=== PATIENT | male | born 1970 | race Caucasian/White ===

== ENCOUNTER 2018-12-08 14:27 | Emergency (ER) | payer OTHER ==
[2018-12-08] MEDS ORDERED: Sodium Chloride 0.9% 1000 ML 1,000 ML IV SCH (15:15)
[2018-12-08 15:25] LABS: BASOPHIL % 0.5 % (0.0-0.4); Basophil (Absolute #) 0.04 (0-0.4); Eosinophil % 2.6 % (0.00-5.0); Granulocytes % 50.5 % (36.0-66.0); Hematocrit 45.8 % (42-50); Hemoglobin 15.9 gm/dl (12.5-18.0); Lymphocyte (Absolute #) 2.87 (1.0-4.6); Lymphocytes % 37.2 % (24.0-44.0); Mean Cell Volume 91.1 fl (78-100); Mean Corpuscular Hemoglobin 31.6 pg (26-32); Mean Corpuscular Hgb Concent. 34.7 g/dl (32-36); Mean Platelet Volume 10.3 fl (6-9.5); Monocyte (Absolute #) 0.71 (0.0-1.3); Monocytes % 9.2 % (0.0-12.0); Platelet Count 230 K/mm3 (150-450); Red Blood Count 5.03 M/mm3 (4.1-5.6); Red Cell Distribution Width 13.1 % (11.5-14.0); White Blood Count 7.7 K/mm3 (4.0-10.5)
[2018-12-08 15:34] LABS: ALBUMIN 4.7 g/dL (3.5-5.0); ALKALINE PHOSPHATASE 80 U/L (38-126); AMYLASE 80 U/L (30-110); ANION GAP 12.5 MEQ/L (5-15); BLOOD UREA NITROGEN 11 mg/dL (9-20); CHLORIDE 103 mmol/L (98-107); Calcium 9.5 mg/dL (8.4-10.2); Carbon Dioxide 29 mmol/L (22-30); Creatinine 1 1.05 mg/dL (0.66-1.25); Glucose 88 mg/dL (74-106); LIPASE 68 U/L (23-300); Potassium 3.7 mmol/L (3.5-5.1); SGOT/AST 27 U/L (17-59); SGPT/ALT 21 U/L (0-50); SODIUM 141 mmol/L (137-145); Total Protein 8.1 g/dL (6.3-8.2)
[2018-12-08 15:36] LABS: Appearance CLEAR (CLEAR); Bilirubin NEGATIVE (NEGATIVE); Blood NEGATIVE Ery/ul (0-5); Glucose NEGATIVE (NEGATIVE); Ketones NEGATIVE (NEGATIVE); Leukocyte Esterase NEGATIVE (NEGATIVE); Nitrite NEGATIVE (NEGATIVE); Protein,Urine Dip NEGATIVE (Negative); Specific Gravity 1.002 (1.005-1.025); Urobilinogen NEGATIVE mg/dL (0-1)
[2018-12-08] MEDS ORDERED: Sodium Chloride 0.9% 1000 ML 1,000 ML ONE (15:36)
--- NOTE | 2018-12-08 15:46 | ERPHSYRPT ---
- History of Present Illness Time Seen by Provider: 12/08/18 14:45 Historian: patient Exam Limitations: no limitations Patient Subjective Stated Complaint: pain in right lateral side of abdomen, he' s able to feel a hard area Triage Nursing Assessment: Pt c/o of pain in his right lateral side of abdomen, he reports that he's able to feel a mass, bowel sounds heard in right lower quadrant only, rates pain 1/10, pain localized to the one area, bowel movements are usually only on his days off, denies issues with urinating, BP 191/121, hx of DC Physician History: patient developed right sided discomfort starting 3 weeks ago; progressively worse; no N&V; appetite decreased last 24 hours, no fever or chills; no N&V; no change ; BMs slight loosening and increased frequency; no hx of stones; no falls or trauma; no prior hx no abdominal surgery. no pain with laughing; Timing/Duration: yesterday (change in appetite; ), week(s) (3 onset), intermittent, gradual onset, worse Activities at Onset: rest Quality: aching, fullness Abdominal Pain Onset Location: RLQ Pain Radiation: groin (right) Severity of Pain-Max: mild Severity of Pain-Current: mild Modifying Factors: Improves With: movement, palpation, position Associated Symptoms: loss of appetite (today) Previous symptoms: no prior history Allergies/Adverse Reactions: No Known Drug Allergies Allergy (Verified 12/08/18 15:06) Home Medications: Lisinopril/Hydrochlorothiazide [Lisinopril-Hctz 20-25 mg Tab] 2 tab PO DAILY [History] - Review of Systems Constitutional: No Symptoms Eyes: No Symptoms Ears, Nose, & Throat: No Symptoms Respiratory: No Cough, No Dyspnea, No Wheezing Cardiac: No Chest Pain, No Palpitations, No Syncope Abdominal/Gastrointestinal: Abdominal Pain, Appetite Changes, No Nausea, No Vomiting, No Diarrhea Genitourinary Symptoms: No Symptoms Musculoskeletal: No Symptoms Skin: No Symptoms Neurological: No Symptoms Psychological: No Symptoms Endocrine: No Symptoms Hematologic/Lymphatic: No Symptoms Immunological/Allergic: No Symptoms - Past Medical History Pertinent Past Medical History: Yes Cardiac History: High Cholesterol, Hypertension, Myocardial Infarction ([place]) GI Medical History: Hemorrhoids - Past Surgical History Past Surgical History: Yes Cardiac: Cardiac Catheterization - Social History Smoking Status: Current every day smoker How long have you smoked: 35 years Exposure to second hand smoke: No Alcohol Use: Socially Drug Use: none Patient Lives Alone: No Significant Family History: hypertension - Female History Hx Now: No - Nursing Vital Signs Nursing Vital Signs: Initial Vital Signs Temperature 97.8 F 12/08/18 14:39 Pulse Rate 75 12/08/18 14:39 Blood Pressure 191/121 12/08/18 14:39 O2 Sat by Pulse Oximetry 98 12/08/18 14:39 Pain Scale Pain Intensity 1 - Physical Exam General Appearance: mild distress, alert, obese Eye Exam: PERRL/EOMI, eyes nml inspection Ears, Nose, Throat Exam: normal ENT inspection, TMs normal, pharynx normal, moist mucous membranes Neck Exam: normal inspection, non-tender, supple, full range of motion, No meningismus, No JVD Respiratory Exam: normal breath sounds, lungs clear, airway intact, No chest tenderness, No respiratory distress, No crackles/rales, No rhonchi, No wheezing Cardiovascular Exam: regular rate/rhythm, normal heart sounds, normal peripheral pulses, capillary refill <2 sec, No murmur, No friction rub, No edema Gastrointestinal/Abdomen Exam: soft, tenderness (RUQ and RLQ; ), distention ( sftly), organomegaly (liver enlarged; ), No normal bowel sounds (deminished), No mass, No guarding, No pulsatile mass, No hernia, No splenomegaly, No bruit Male Genitalia Exam: normal genitalia, No hernia, No testicular tenderness, No testicular mass, No prostate tenderness, No prostate enlargement, No priapism Rectal Exam: normal exam, normal rectal tone, No mass, No hemorrhoids, No blood , No tenderness Back Exam: normal inspection, normal range of motion, No CVA tenderness, No vertebral tenderness, No rash Extremity Exam: normal inspection, normal range of motion, pelvis stable, No hema's sign, No pedal edema Neurologic Exam: alert, oriented x 3, cooperative, 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 etiology left kidney; small bilateral fatty inguinal hernia) Ordered Tests: Active Orders 24 hr Category Date Time Status IV Insertion STAT Care 12/08/18 15:06 Active NPO (ED) STAT Care 12/08/18 15:06 Active Re-Check Vital Signs STAT Care 12/08/18 15:06 Active ABDOMEN AND PELVIS W/0 CONTRAS [CT] Stat Exams 12/08/18 15:07 Completed AMYLASE Stat Lab 12/08/18 15:21 Completed CBC W DIFF Stat Lab 12/08/18 15:21 Completed CMP Stat Lab 12/08/18 15:21 Completed LIPASE Stat Lab 12/08/18 15:21 Completed Occult Blood,Stool Other Stat Lab 12/08/18 15:20 Completed UA W/RFX UR CULTURE Stat Lab 12/08/18 15:20 Completed Medication Summary Generic Name Dose Route Start Last Admin Trade Name Freq PRN Reason Stop Dose Admin Sodium Chloride 1,000 mls @ 100 mls/hr 12/08/18 15:15 12/08/18 15:42 Sodium Chloride 0.9% 1000 Ml IV 01/07/19 15:14 100 mls/hr .Q10H GLADIS Administration Lab/Rad Data: Laboratory Result Diagrams 12/08/18 15:21 12/08/18 15:21 Laboratory Results 12/08/18 12/08/18 12/08/18 Range/Units 15:21 15:21 15:20 WBC 7.7 (4.0-10.5) K/mm3 RBC 5.03 (4.1-5.6) M/mm3 Hgb 15.9 (12.5-18.0) gm/dl Hct 45.8 (42-50) % MCV 91.1 (78-100) fl MCH 31.6 (26-32) pg MCHC 34.7 (32-36) g/dl RDW 13.1 (11.5-14.0) % Plt Count 230 (150-450) K/mm3 MPV 10.3 H (6-9.5) fl Gran % 50.5 (36.0-66.0) % Eos # (Auto) 0.20 (0-0.5) Absolute Lymphs (auto) 2.87 (1.0-4.6) Absolute Monos (auto) 0.71 (0.0-1.3) Lymphocytes % 37.2 (24.0-44.0) % Monocytes % 9.2 (0.0-12.0) % Eosinophils % 2.6 (0.00-5.0) % Basophils % 0.5 (0.0-0.4) % Absolute Granulocytes 3.89 (1.4-6.9) Basophils # 0.04 (0-0.4) Sodium 141 (137-145) mmol/L Potassium 3.7 (3.5-5.1) mmol/L Chloride 103 (98-107) mmol/L Carbon Dioxide 29 (22-30) mmol/L Anion Gap 12.5 (5-15) MEQ/L BUN 11 (9-20) mg/dL Creatinine 1.05 (0.66-1.25) mg/dL Estimated GFR > 60.0 ML/MIN Glucose 88 (74-106) mg/dL Calcium 9.5 (8.4-10.2) mg/dL Total Bilirubin 0.90 (0.2-1.3) mg/dL AST 27 (17-59) U/L ALT 21 (0-50) U/L Alkaline Phosphatase 80 (38-126) U/L Serum Total Protein 8.1 (6.3-8.2) g/dL Albumin 4.7 (3.5-5.0) g/dL Amylase 80 (30-110) U/L Lipase 68 (23-300) U/L Urine Color STRAW (YELLOW) Urine Appearance CLEAR (CLEAR) Urine pH 7.0 (5-6) Ur Specific Onward 1.002 (1.005-1.025) Urine Protein NEGATIVE (Negative) Urine Ketones NEGATIVE (NEGATIVE) Urine Blood NEGATIVE (0-5) Fabio/ul Urine Nitrite NEGATIVE (NEGATIVE) Urine Bilirubin NEGATIVE (NEGATIVE) Urine Urobilinogen NEGATIVE (0-1) mg/dL Ur Leukocyte Esterase NEGATIVE (NEGATIVE) Urine WBC (Auto) NONE (0-5) /HPF Urine RBC (Auto) NONE (0-2) /HPF U Epithel Cells (Auto) NONE (FEW) /HPF Urine Bacteria (Auto) NONE (NEGATIVE) /HPF Urine Culture Reflexed NO (NO) Urine Glucose NEGATIVE (NEGATIVE) mg/dL Stool Occult Blood (Negative) 12/08/18 Range/Units 15:20 WBC (4.0-10.5) K/mm3 RBC (4.1-5.6) M/mm3 Hgb (12.5-18.0) gm/dl Hct (42-50) % MCV (78-100) fl MCH (26-32) pg MCHC (32-36) g/dl RDW (11.5-14.0) % Plt Count (150-450) K/mm3 MPV (6-9.5) fl Gran % (36.0-66.0) % Eos # (Auto) (0-0.5) Absolute Lymphs (auto) (1.0-4.6) Absolute Monos (auto) (0.0-1.3) Lymphocytes % (24.0-44.0) % Monocytes % (0.0-12.0) % Eosinophils % (0.00-5.0) % Basophils % (0.0-0.4) % Absolute Granulocytes (1.4-6.9) Basophils # (0-0.4) Sodium (137-145) mmol/L Potassium (3.5-5.1) mmol/L Chloride (98-107) mmol/L Carbon Dioxide (22-30) mmol/L Anion Gap (5-15) MEQ/L BUN (9-20) mg/dL Creatinine (0.66-1.25) mg/dL Estimated GFR ML/MIN Glucose (74-106) mg/dL Calcium (8.4-10.2) mg/dL Total Bilirubin (0.2-1.3) mg/dL AST (17-59) U/L ALT (0-50) U/L Alkaline Phosphatase (38-126) U/L Serum Total Protein (6.3-8.2) g/dL Albumin (3.5-5.0) g/dL Amylase (30-110) U/L Lipase (23-300) U/L Urine Color (YELLOW) Urine Appearance (CLEAR) Urine pH (5-6) Ur Specific Onward (1.005-1.025) Urine Protein (Negative) Urine Ketones (NEGATIVE) Urine Blood (0-5) Fabio/ul Urine Nitrite (NEGATIVE) Urine Bilirubin (NEGATIVE) Urine Urobilinogen (0-1) mg/dL Ur Leukocyte Esterase (NEGATIVE) Urine WBC (Auto) (0-5) /HPF Urine RBC (Auto) (0-2) /HPF U Epithel Cells (Auto) (FEW) /HPF Urine Bacteria (Auto) (NEGATIVE) /HPF Urine Culture Reflexed (NO) Urine Glucose (NEGATIVE) mg/dL Stool Occult Blood NEGATIVE (Negative) reviewed - Progress Progress: improved, re-examined (after lab and CT) Progress Note: 12/08/18 15:49 IV started; CT and lab pending; will recheck after 12/08/18 16:30 recheck after cT; reviewed results; will follow up with lmd; BP improved but still elevated- ran out of meds this week; will get Rx filled; instructions given Counseled pt/family regarding: lab results, diagnosis, need for follow-up, rad results - Departure Time of Disposition: 16:31 Departure Disposition: Home Clinical Impression: Abdominal pain, bilateral fatty inguiinnal hernias Condition: Stable Critical Care Time: No Referrals: DOCTOR,NO FAMILY [Primary Care Provider] - Instructions: Acute Abdomen (Belly Pain), Inguinal and Femoral (Groin) Hernias Additional Instructions: rest; get BP meds filled and take; follow up lmd recheck dischargeFollow-up with family doctor as directed. Call for appointment. Return if any problems. If you smoke please stop. Call or follow up with your family doctor for assistance if you need it to stop. Please wear your seatbelt when driving. Have a nice day. Thank you for allowing us to participate in your care today. :o) Dr Da Edwards
[2018-12-08 16:14] VITALS: BP 176/112; PULSE 67
--- NOTE | 2018-12-08 16:16 | XRAY ---
Indication: Right flank pain. Multiple contiguous axial images obtained through the abdomen and pelvis without contrast using renal stone protocol. Comparison: None Lung bases are clear. Heart is not enlarged. No renal calculus or evidence for obstructive uropathy in either system. 1.5 cm left mid renal exophytic cyst. Also 1.7 cm left mid renal cortical round density more dense than cyst possible viscous/hemorrhagic cyst with solid renal mass not completely excluded. Noncontrasted stomach and bowel loops appear nonobstructed. Normal appendix. No free fluid/air. Gallbladder contracted without gallstones. Remaining liver, gallbladder, pancreas, spleen, adrenal glands, kidneys, ureters, and bladder appear unremarkable for noncontrast exam. Minimal aortoiliac calcifications without AAA. Osseous structures intact with mild/moderate degenerative changes throughout the thoracolumbar spine. Small bilateral fatty inguinal hernias. Impression: 1. Negative renal calculus or evidence for obstructive uropathy. 2. Left mid renal exophytic cyst. Second 1.7 cm left mid renal cortical round lesion as detailed not simple cyst. Rule out viscous/hemorrhagic cyst versus solid renal mass. Renal sonogram may help differentiate. 3. Small bilateral fatty inguinal hernias. 4. Remaining CT abdomen/pelvis without contrast exam is negative. CTDI 23.68
[2018-12-08 16:34] VITALS: O2SAT 98
== END 2018-12-08 16:43 | disposition home or self-care (01) ==
LOC: ED 14:27
DX: R10.31 Right lower quadrant pain (principal); K40.90 Unilateral inguinal hernia, without obstruction or gangrene, not specified as recurrent; Z79.899 Other long term (current) drug therapy; E78.00 Pure hypercholesterolemia, unspecified; I10 Essential (primary) hypertension; I25.2 Old myocardial infarction
CPT/HCPCS: 36000; 36415; 74176; 80053; 81001; 82150; 82272; 83690; 85025; 99284

== ENCOUNTER 2019-08-13 16:00 | Observation (INO) | payer OTHER ==
[2019-08-13] MEDS ORDERED: BABY ASPIRIN 81 MG CHEW PO ONE (16:08)
[2019-08-13] MEDS ORDERED: MORPHINE SULFATE 2 MG INJ IV ONE (16:08)
--- NOTE | 2019-08-13 16:11 | ERPHSYRPT ---
- History of Present Illness Time Seen by Provider: 08/13/19 16:00 Historian: patient Exam Limitations: no limitations Physician History: Patient has had three bouts of intermittent left lateral chest pressure sensation starting 12 hours ago while at work, occurring again 7 hours ago briefly and again briefly one hour prior to coming into the emergency department. Patient has not felt anything like this sensation in the past. Negative evaluation prior to coming into the emergency department. Timing/Duration: hour(s) (12) Activities at Onset: none Quality: pressure Location: shoulder Severity of Pain-Max: moderate Severity of Pain-Current: mild Modifying Factors: Improves With: nothing Associated Symptoms: dizziness, No nausea, No vomiting, No palpitations, No heartburn, No abdominal pain, No shortness of breath, No cough, No hurts to breathe, No diaphoresis, No chills, No fever, No fatigue, No weakness, No swelling/lump in chest, No syncope, No rash, No headache, No edema, No back pain Prior Chest Pain/Cardiac Workup: cardiac cath (3 years ago, no stent placed. performed at [facility] in [place], [place]), heart attack Nitro Today/Relief: no nitro taken today Aspirin Treatment Today: 81 mg x 2 Allergies/Adverse Reactions: No Known Drug Allergies Allergy (Verified 12/08/18 15:06) Home Medications: Amlodipine Besylate 1 tab PO DAILY 08/13/19 [History] Lisinopril/Hydrochlorothiazide [Lisinopril-Hctz 20-25 mg Tab] 1 mg PO BID [History] Metoprolol Tartrate 100 mg PO BID 08/13/19 [History] - Review of Systems Constitutional: No Fever, No Chills Eyes: No Eye Pain, No Vision Changes Ears, Nose, & Throat: No Epistaxis, No Mouth Swelling, No Throat Pain, No Painful Swallowing Respiratory: No Cough, No Dyspnea, No Dyspnea on Exertion (MACARIO) Cardiac: Chest Pain, No Edema, No Syncope Abdominal/Gastrointestinal: No Abdominal Pain, No Nausea, No Vomiting, No Diarrhea Genitourinary Symptoms: No Dysuria, No Hematuria, No Flank Pain Musculoskeletal: No Back Pain, No Neck Pain Skin: No Rash Neurological: No Dizziness, No Focal Weakness, No Parasthesia, No Sensory Changes, No Tremors Psychological: No Anxiety, No Emotional Lability Endocrine: No Polydipsia All Other Systems: Reviewed and Negative - Past Medical History Pertinent Past Medical History: Yes Cardiac History: High Cholesterol, Hypertension, Myocardial Infarction ([place]) GI Medical History: Hemorrhoids - Past Surgical History Past Surgical History: Yes Cardiac: Cardiac Catheterization - Social History Smoking Status: Current every day smoker How long have you smoked: 35 years Exposure to second hand smoke: No Alcohol Use: Socially Drug Use: none Patient Lives Alone: No Significant Family History: hypertension - Nursing Vital Signs Nursing Vital Signs: Initial Vital Signs Temperature 98.1 F 08/13/19 16:01 Pulse Rate 64 08/13/19 16:01 Respiratory Rate 18 08/13/19 16:01 Blood Pressure 153/71 08/13/19 16:01 O2 Sat by Pulse Oximetry 97 08/13/19 16:01 Pain Scale Pain Intensity 1 - Physical Exam General Appearance: no apparent distress, alert Eye Exam: PERRL/EOMI, eyes nml inspection Ears, Nose, Throat Exam: pharynx normal, moist mucous membranes Neck Exam: normal inspection, non-tender, supple, full range of motion Respiratory Exam: normal breath sounds, lungs clear, airway intact, No respiratory distress, No accessory muscle use, No crackles/rales, No rhonchi, No wheezing Cardiovascular Exam: regular rate/rhythm, normal heart sounds, normal peripheral pulses, capillary refill <2 sec Gastrointestinal/Abdomen Exam: soft, normal bowel sounds, No tenderness, No distention, No mass, No guarding, No pulsatile mass, No rebound Back Exam: normal inspection, No CVA tenderness, No vertebral tenderness Extremity Exam: normal inspection, normal range of motion Neurologic Exam: alert, oriented x 3, 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, 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, normal mood/affect, nml station & gait, sensation nml, No motor deficits Skin Exam: normal color, warm, dry SpO2 Interpretation: normal - Course Nursing assessment & vital signs reviewed: Yes EKG Interpreted by Me: RATE (66), Sinus Rhythm, NORMAL AXIS, NORMAL INTERVALS, NORMAL QRS, NORMAL ST-T - Radiology Exams Chest X-ray Interpretation: Reviewed by me, No Fracture, No Pneumonia, No Pneumothorax , Nml Alignment, Nml Heart Size, No Infiltrates, Nml Mediastinum, Other ( confirmed by Radiologist interpretation) Ordered Tests: Active Orders 24 hr Category Date Time Status Director Community Organization STAT Care 08/13/19 16:09 Active EKG-ER Only STAT Care 08/13/19 16:08 Active IV Insertion STAT Care 08/13/19 16:08 Active Pulse Oximetry (ED) STAT Care 08/13/19 16:08 Active CHEST 1 VIEW (PORTABLE) Stat Exams 08/13/19 16:09 Completed CBC W DIFF Stat Lab 08/13/19 16:10 Completed CK-Creatinine Phosphokinase Stat Lab 08/13/19 16:10 Completed CMP Stat Lab 08/13/19 16:10 Completed MAGNESIUM Stat Lab 08/13/19 16:10 Completed NT PRO BNP Stat Lab 08/13/19 16:10 Completed PROTIME WITH INR Stat Lab 08/13/19 16:10 Completed PTT Stat Lab 08/13/19 16:10 Completed TROPONIN Q3H Lab 08/13/19 16:10 Completed TROPONIN Q3H Lab 08/13/19 19:15 Ordered TROPONIN Q3H Lab 08/13/19 22:15 Ordered TROPONIN Q3H Lab 08/14/19 01:15 Ordered TROPONIN Q3H Lab 08/14/19 04:15 Ordered Urine Triage Profile Stat Lab 08/13/19 16:08 Uncollected Medication Summary Discontinued Medications Generic Name Dose Route Start Last Admin Trade Name Freq PRN Reason Stop Dose Admin Aspirin 162 mg 08/13/19 16:08 08/13/19 16:39 Baby Aspirin 81 Mg Chew PO 08/13/19 16:09 162 mg STAT ONE Administration Aspirin Confirm 08/13/19 16:38 Baby Aspirin 81 Mg Chew Administered 08/13/19 16:39 Dose 162 mg .ROUTE .STK-MED ONE Morphine Sulfate 2 mg 08/13/19 16:08 08/13/19 16:39 Morphine Sulfate 2 Mg Inj IV 08/13/19 16:09 2 mg STAT ONE Administration Morphine Sulfate Confirm 08/13/19 16:38 Morphine Sulfate 2 Mg Inj Administered 08/13/19 16:39 Dose 2 mg .ROUTE .STK-MED ONE Potassium Chloride 40 meq 08/13/19 16:47 08/13/19 16:58 Klor Con 10 Meq PO 08/13/19 16:48 40 meq STAT ONE Administration Potassium Chloride Confirm 08/13/19 16:57 Klor Con 10 Meq Administered 08/13/19 16:58 Dose 40 meq PO .STK-MED ONE Lab/Rad Data: Laboratory Result Diagrams 08/13/19 16:10 08/13/19 16:10 Laboratory Results 08/13/19 08/13/19 08/13/19 Range/Units 16:10 16:10 16:10 WBC (4.0-10.5) K/mm3 RBC (4.1-5.6) M/mm3 Hgb (12.5-18.0) gm/dl Hct (42-50) % MCV (78-100) fl MCH (26-32) pg MCHC (32-36) g/dl RDW (11.5-14.0) % Plt Count (150-450) K/mm3 MPV (6-9.5) fl Gran % (36.0-66.0) % Eos # (Auto) (0-0.5) Absolute Lymphs (auto) (1.0-4.6) Absolute Monos (auto) (0.0-1.3) Lymphocytes % (24.0-44.0) % Monocytes % (0.0-12.0) % Eosinophils % (0.00-5.0) % Basophils % (0.0-0.4) % Absolute Granulocytes (1.4-6.9) Basophils # (0-0.4) PT 11.2 (8.83-12.87) SECONDS INR 0.99 (0.8-3.0) APTT 33.1 (24.1-36.1) SECONDS Sodium 142 (137-145) mmol/L Potassium 3.1 L (3.5-5.1) mmol/L Chloride 103 (98-107) mmol/L Carbon Dioxide 27 (22-30) mmol/L Anion Gap 14.6 (5-15) MEQ/L BUN 10 (9-20) mg/dL Creatinine 0.93 (0.66-1.25) mg/dL Estimated GFR > 60.0 ML/MIN Glucose 126 H (74-106) mg/dL Calcium 9.5 (8.4-10.2) mg/dL Magnesium 1.8 (1.6-2.3) mg/dL Total Bilirubin 0.40 (0.2-1.3) mg/dL AST 30 (17-59) U/L ALT 27 (0-50) U/L Alkaline Phosphatase 55 (38-126) U/L Creatine Kinase 203 H (55-170) U/L Troponin I 0.017 (0.000-0.034) ng/mL NT-Pro-B Natriuret Pep 56.3 (0-450) pg/mL Serum Total Protein 7.6 (6.3-8.2) g/dL Albumin 4.4 (3.5-5.0) g/dL 08/13/19 Range/Units 16:10 WBC 7.8 (4.0-10.5) K/mm3 RBC 4.45 (4.1-5.6) M/mm3 Hgb 14.1 (12.5-18.0) gm/dl Hct 40.3 L (42-50) % MCV 90.6 (78-100) fl MCH 31.7 (26-32) pg MCHC 35.0 (32-36) g/dl RDW 12.5 (11.5-14.0) % Plt Count 247 (150-450) K/mm3 MPV 10.4 H (6-9.5) fl Gran % 48.1 (36.0-66.0) % Eos # (Auto) 0.26 (0-0.5) Absolute Lymphs (auto) 3.07 (1.0-4.6) Absolute Monos (auto) 0.68 (0.0-1.3) Lymphocytes % 39.4 (24.0-44.0) % Monocytes % 8.7 (0.0-12.0) % Eosinophils % 3.3 (0.00-5.0) % Basophils % 0.5 (0.0-0.4) % Absolute Granulocytes 3.74 (1.4-6.9) Basophils # 0.04 (0-0.4) PT (8.83-12.87) SECONDS INR (0.8-3.0) APTT (24.1-36.1) SECONDS Sodium (137-145) mmol/L Potassium (3.5-5.1) mmol/L Chloride (98-107) mmol/L Carbon Dioxide (22-30) mmol/L Anion Gap (5-15) MEQ/L BUN (9-20) mg/dL Creatinine (0.66-1.25) mg/dL Estimated GFR ML/MIN Glucose (74-106) mg/dL Calcium (8.4-10.2) mg/dL Magnesium (1.6-2.3) mg/dL Total Bilirubin (0.2-1.3) mg/dL AST (17-59) U/L ALT (0-50) U/L Alkaline Phosphatase (38-126) U/L Creatine Kinase (55-170) U/L Troponin I (0.000-0.034) ng/mL NT-Pro-B Natriuret Pep (0-450) pg/mL Serum Total Protein (6.3-8.2) g/dL Albumin (3.5-5.0) g/dL - Progress Progress: improved Air Movement: good Progress Note: 08/13/19 17:08 Discussed the patient with Dr Cagle, Hospitalist. Dr Cagle accepted the patient for observation to telemetry at [facility]. 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 during his time in the emergency room Blood Culture(s) Obtained: No Antibiotics given: No Discussed with : Eh (@17:08) Will see patient in: hospital (observation) Counseled pt/family regarding: lab results, diagnosis, need for follow-up, rad results - Departure Departure Disposition: Observation ([facility] to telemetry) Clinical Impression: Acute chest pain, Hypokalemia Hypertension Qualifiers: Hypertension type: essential hypertension Qualified Code(s): I10 - Essential ( primary) hypertension Condition: Fair Critical Care Time: No Referrals: ADELSO CAGLE [Primary Care Provider] - Plan of Treatment: place in observation to Dr Cagle's service at [facility] for continued monitoring, evaluation and treatment
[2019-08-13 16:32] LABS: BASOPHIL % 0.5 % (0.0-0.4); Basophil (Absolute #) 0.04 (0-0.4); Eosinophil % 3.3 % (0.00-5.0); Eosinophil (Absolute #) 0.26 (0-0.5); Granulocyte Absolute (ANC) 3.74 (1.4-6.9); Granulocytes % 48.1 % (36.0-66.0); Hematocrit 40.3 % (42-50); Hemoglobin 14.1 gm/dl (12.5-18.0); Lymphocyte (Absolute #) 3.07 (1.0-4.6); Lymphocytes % 39.4 % (24.0-44.0); Mean Cell Volume 90.6 fl (78-100); Mean Corpuscular Hemoglobin 31.7 pg (26-32); Mean Platelet Volume 10.4 fl (6-9.5); Monocyte (Absolute #) 0.68 (0.0-1.3); Monocytes % 8.7 % (0.0-12.0); Platelet Count 247 K/mm3 (150-450); Red Blood Count 4.45 M/mm3 (4.1-5.6); Red Cell Distribution Width 12.5 % (11.5-14.0); White Blood Count 7.8 K/mm3 (4.0-10.5)
--- NOTE | 2019-08-13 16:36 | XRAY ---
Indication: Chest pain. Comparison: None Portable apical lordotic chest demonstrates normal heart, lungs, and bony thorax.
[2019-08-13] MEDS ORDERED: BABY ASPIRIN 81 MG CHEW ONE (16:38)
[2019-08-13] MEDS ORDERED: MORPHINE SULFATE 2 MG INJ ONE (16:38)
[2019-08-13 16:41] LABS: ALBUMIN 4.4 g/dL (3.5-5.0); ALKALINE PHOSPHATASE 55 U/L (38-126); ANION GAP 14.6 MEQ/L (5-15); BLOOD UREA NITROGEN 10 mg/dL (9-20); CHLORIDE 103 mmol/L (98-107); CK-Creatinine Phosphokinase 203 U/L (55-170); Calcium 9.5 mg/dL (8.4-10.2); Carbon Dioxide 27 mmol/L (22-30); Creatinine 1 0.93 mg/dL (0.66-1.25); Glucose 126 mg/dL (74-106); MAGNESIUM 1.8 mg/dL (1.6-2.3); NT PRO BNP 56.3 pg/mL (0-450); Potassium 3.1 mmol/L (3.5-5.1); SGOT/AST 30 U/L (17-59); SGPT/ALT 27 U/L (0-50); SODIUM 142 mmol/L (137-145); Total Protein 7.6 g/dL (6.3-8.2)
[2019-08-13] MEDS ORDERED: Klor Con 10 MEQ PO ONE ×2 (16:47→16:57)
[2019-08-13 16:49] LABS: INR 0.99 (0.8-3.0); PROTIME 11.2 SECONDS (8.83-12.87)
[2019-08-13 16:52] LABS: PTT 33.1 SECONDS (24.1-36.1)
[2019-08-13] MEDS ORDERED: TYLENOL 325 MG PO PRN (17:41)
[2019-08-13] MEDS ORDERED: Nitrostat 0.4 MG Tablet SL PRN (18:09)
[2019-08-13] MEDS ORDERED: MORPHINE SULFATE 2 MG INJ IV PRN (18:10)
[2019-08-13] MEDS ORDERED: Zestril 20 MG ONE (21:05)
[2019-08-13] MEDS ORDERED: hydroDIURIL 25 MG ONE (21:05)
[2019-08-13] MEDS: Lopressor 50 MG PO SCH (21:21)
[2019-08-13] MEDS: Pepcid 20 MG PO SCH (21:22)
[2019-08-13 21:25] LABS: Amphetamine,Urine NEGATIVE (NEGATIVE); Barbiturate,Urine NEGATIVE (NEGATIVE); Benzodiazepine,Urine NEGATIVE (NEGATIVE); Cocaine,Urine NEGATIVE (NEGATIVE); Methadone,Urine NEGATIVE (NEGATIVE); Opiate,Urine POSITIVE (NEGATIVE); PCP,Urine NEGATIVE (NEGATIVE); THC,Urine NEGATIVE (NEGATIVE)
[2019-08-13] MEDS ORDERED: Zestril 20 MG*** 20 MG, hydroDIURIL 25 MG*** 25 MG PO SCH ×2 (22:00)
[2019-08-14 07:29] LABS: ANION GAP 11.6 MEQ/L (5-15); BLOOD UREA NITROGEN 13 mg/dL (9-20); CHLORIDE 107 mmol/L (98-107); Calcium 8.8 mg/dL (8.4-10.2); Carbon Dioxide 29 mmol/L (22-30); Creatinine 1 1.02 mg/dL (0.66-1.25); Glucose 87 mg/dL (74-106); Potassium 3.6 mmol/L (3.5-5.1); SODIUM 143 mmol/L (137-145)
[2019-08-14 09:00] VITALS: BP 120/64; PULSE 87; O2SAT 94
[2019-08-14] MEDS: Lopressor 50 MG PO SCH (09:26)
[2019-08-14] MEDS: Pepcid 20 MG PO SCH (09:26)
[2019-08-14] MEDS ORDERED: hydroDIURIL 25 MG PO SCH (10:00)
[2019-08-14] MEDS ORDERED: Zestril 20 MG PO SCH (10:00)
[2019-08-14] MEDS ORDERED: ENOXAPARIN SODIUM SQ SCH (10:00)
[2019-08-14] MEDS ORDERED: NORVASC 5 MG PO SCH (10:00)
--- NOTE | 2019-08-14 10:41 | SSS ---
DISCHARGE DIAGNOSIS: CHEST PAIN. 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 He reported with each beat he would feel a burning-type of discomfort for several beats up into the left shoulder and then triceps area of his arm. Reportedly this occurred off and on over a couple of hours which prompted him to present himself to the emergency room. The patient reports this began when he was working in [employer] [place] [employer]. 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 The nurse reported that he had been noted to be somewhat tearful. PAST MEDICAL/SURGICAL HISTORY: Significant for hypertension. He has had previous heart cath approximately three years ago at [facility]. He reports there was only approximately 20% blockage in his arteries at that time so he received no stenting. The patient is relatively new to me. MEDICATIONS: He is currently on medications of amlodipine 5 mg daily, lisinopril 20/25 daily, metoprolol 100 mg b.i.d. ALLERGIES: NKDA. PHYSICAL EXAMINATION: Revealed a large, muscular, 49 year-old white male currently in no distress. The patient's vital signs in the emergency room revealed a temperature 98.1F, pulse 64, respiratory rate 18 and blood pressure 153/71. O2 saturation 97%. HEENT: Normocephalic, atraumatic. Pupils equal round reactive to light. Extraocular movements intact. Oropharynx is pink and moist. NECK: Supple without lymphadenopathy, thyromegaly or JVD. CHEST: Clear to auscultation. HEART: Regular rate and rhythm. No murmurs, rubs or gallops are heard. ABDOMEN: Soft. No masses were felt. EXTREMITIES: Without cyanosis, clubbing or edema. NEUROLOGIC: The patient is alert and oriented x3. LAB DATA AND TESTS: His laboratory studies revealed troponins on several measurements no greater than 0.034. His CBC showed a white count of 7,800, hemoglobin 14.1, PLT count 247,000. He had a chest x-ray which was essentially with no active disease. His sugar nonfasting was 126. His BUN 10, creatinine 0.93. Potassium was slightly low at 3.1. Electrolytes were otherwise normal. Liver enzymes were normal. CPK was slightly elevated at 203 but it was noted that the patient is very large and muscular. The patient's international normalized ratio is 0.99. Urine drug screen was positive for opiates which he is not currently on any medication that I am giving him. The patient's EKG show sinus rhythm. HOSPITAL COURSE: The patient being admitted overnight. He has had no further chest discomfort since admission from the emergency room, having ruled out for myocardial infarction, we suggested the patient take a couple of days off from working the evening shift. He will have approximately four days off. I will see him in the office in approximately one week. We will attempt to get him an appointment to see Dr. Oscar Brice who he has seen previously for some arrhythmia events approximately a year ago. The patient is instructed to continue take daily aspirin which he does take on a regular basis which was not listed above in his home medication list. He is instructed to take 325 mg dose of aspirin should he have recurrence of the chest discomfort and present himself to the emergency room if the chest pain does not resolve with the aspirin.
== END 2019-08-14 10:30 | disposition home or self-care (01) ==
LOC: ED 16:00 → MED SURG 17:36
PROVIDERS: ADMIT Family Medicine; ATTEND Family Medicine
DX: R07.9 Chest pain, unspecified (principal); I10 Essential (primary) hypertension; Z79.899 Other long term (current) drug therapy
CPT/HCPCS: 36000; 36415; 71045; 80048; 80053; 80307; 82550; 83735; 83880; 84484; 85025; 85610; 85652; 85730; 86140; 93005; 93041; 93268; 94760; 96374; 99285; G0378; J2270; A9270-GY

== ENCOUNTER 2023-08-30 12:18 | Inpatient (IN) | payer SELFPAY ==
--- NOTE | 2023-08-30 12:27 | ERPHSYRPT ---
- History of Present Illness Time Seen by Provider: 08/30/23 12:27 Source: patient Exam Limitations: no limitations Physician History: This is a 53-year-old morbidly obese white male who was sent to us from clinic secondary to low potassium level of 2.9 that was drawn at 11 AM. Patient also has had complaints of increasing shortness of breath over the last 2 weeks. Benigno hanson has a history of hypertension. He was told [place] [address] Britton Brice, cardiology, that he had an arrhythmia issue. He is not on any medication for this. He is only taking aspirin and lisinopril per his report. Patient denies chest pain. He does arrive to our emergency department with a rapid heart rate. The rhythm is atrial fibrillation. Apparently, per spouse's report, the patient also has a history of coronary artery disease and sleep apnea. Activities at Onset: none Severity of Dyspnea-Max: mild Severity of Dyspnea-Current: mild (To moderate) Possible Cause: occasional episodes Modifying Factors: Improves With: activity Associated Symptoms: No cough, No chest pain/discomfort, No calf pain Allergies/Adverse Reactions: No Known Drug Allergies Allergy (Verified 08/30/23 12:33) Home Medications: Lisinopril/Hydrochlorothiazide [Lisinopril-Hctz 20-25 mg Tab] 1 tab PO BID 08/13/19 [History] Hx Tetanus, Diphtheria Vaccination/Date Given: No Hx Influenza Vaccination/Date Given: No Hx Pneumococcal Vaccination/Date Given: No Travel Risk - International Travel Have you traveled outside of the country in past 3 weeks: No - Coronavirus Screening Are you exhibiting any of the following symptoms?: Yes Symptoms: Shortness of Breath - Review of Systems Constitutional: No Symptoms Eyes: No Symptoms Ears, Nose, & Throat: No Symptoms Respiratory: Dyspnea, Dyspnea on Exertion (MACARIO) Cardiac: No Symptoms Abdominal/Gastrointestinal: No Symptoms Genitourinary Symptoms: No Symptoms Musculoskeletal: No Symptoms Skin: No Symptoms Neurological: No Symptoms Psychological: No Symptoms Endocrine: No Symptoms Hematologic/Lymphatic: No Symptoms Immunological/Allergic: No Symptoms All Other Systems: Reviewed and Negative - Past Medical History Pertinent Past Medical History: Yes Neurological History: No Pertinent History ENT History: No Pertinent History Cardiac History: Coronary Artery Disease, Myocardial Infarction (DC), Other Respiratory History: Sleep Apnea Endocrine Medical History: No Pertinent History Musculoskeletal History: No Pertinent History GI Medical History: Hernia History: No Pertinent History Psycho-Social History: No Pertinent History Male Reproductive Disorders: No Pertinent History Other Medical History: heart cath in 12/2016 in [place]-no stent placed - Past Surgical History Past Surgical History: No Cardiac: Cardiac Catheterization - Social History Smoking Status: Current every day smoker How long have you smoked: 35 years Exposure to second hand smoke: No Alcohol Use: Socially Drug Use: none Patient Lives Alone: No Significant Family History: hypertension - Nursing Vital Signs Nursing Vital Signs: Initial Vital Signs Temperature 96.3 F 08/30/23 12:20 Pulse Rate 135 H 08/30/23 12:20 Respiratory Rate 22 08/30/23 12:20 Blood Pressure 137/89 08/30/23 12:20 O2 Sat by Pulse Oximetry 95 08/30/23 12:20 Pain Scale Pain Intensity 0 - Physical Exam General Appearance: no apparent distress, alert, obese Eye Exam: PERRL/EOMI, eyes nml inspection Ears, Nose, Throat Exam: hearing grossly normal, normal ENT inspection, normal pharynx Neck Exam: normal inspection, non-tender, supple, full range of motion Respiratory Exam: normal breath sounds, lungs clear, airway intact, No chest tenderness, No respiratory distress Cardiovascular/Chest Exam: tachycardia, irregular Abdominal/Gastrointestinal Exam: soft, normal bowel sounds, No tenderness Rectal Exam: not done Extremity Exam: non-tender, normal range of motion, normal capillary refill, no calf tenderness, no pedal edema, pelvis stable, No normal inspection Neurologic Exam: alert, oriented x 3, cooperative, 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 nml as tested, normal mood/affect, nml cerebellar function, nml station & gait, sensation nml Skin Exam: normal color, warm, dry Lymphatic Exam: No adenopathy SpO2 Interpretation: normal O2 Delivery: Room Air - Course Nursing assessment & vital signs reviewed: Yes EKG Interpreted by Me: RATE ([id number]), A-fib, prolonged QT interval, Non-specific ST Changes, Other (No acute ischemic changes on today's twelve-lead EKG) Ordered Tests: Active Orders 24 hr Category Date Time Status Document Preparer Microfilming STAT Care 08/30/23 13:36 Active EKG-ER Only STAT Care 08/30/23 13:35 Active IV Insertion STAT Care 08/30/23 13:35 Active Pulse Oximetry (ED) STAT Care 08/30/23 13:35 Active Telemetry q4h Care 08/30/23 13:38 Active CHEST WITH CONTRAST [CT] Stat Exams 08/30/23 14:24 Completed CBC W DIFF Stat Lab 08/30/23 12:30 Completed D-DIMER QUANTITATIVE Stat Lab 08/30/23 12:30 Completed MAGNESIUM Stat Lab 08/30/23 12:30 Completed NT PRO BNPII Stat Lab 08/30/23 12:30 Completed PROCALCITONIN Stat Lab 08/30/23 Ordered PROTIME WITH INR Stat Lab 08/30/23 12:30 Completed TROPONIN Q4H Lab 08/30/23 12:30 Completed TROPONIN Q4H Lab 08/30/23 17:45 Ordered TROPONIN Q4H Lab 08/30/23 21:45 Ordered BiPap/CPAP ROUTINE RT 08/30/23 16:49 Active Transfer Order Routine Transfer 08/30/23 Ordered Medication Summary Generic Name Dose Route Start Last Admin Trade Name Freq PRN Reason Stop Dose Admin Sodium Chloride 1,000 mls @ 100 mls/hr 08/30/23 14:15 08/30/23 14:07 Sodium Chloride 0.9% 1000 Ml IV 09/29/23 14:14 100 mls/hr .Q10H GLADIS Administration Diltiazem HCl 100 mls @ 5 mls/hr 08/30/23 15:50 Cardizem Drip 100 Mg/100 Ml D5w IV 09/29/23 15:49 .Q20H PRN HEART RATE/ A-FIB Protocol 5 MG/HR Discontinued Medications Generic Name Dose Route Start Last Admin Trade Name Freq PRN Reason Stop Dose Admin Diltiazem HCl 15 mg 08/30/23 13:35 08/30/23 13:58 Diltiazem Hcl Iv 5 Mg/Ml Vial IV 08/30/23 13:36 15 mg STAT ONE Administration Diltiazem HCl Confirm 08/30/23 13:55 Diltiazem Hcl Iv 5 Mg/Ml Vial Administered 08/30/23 13:56 Dose 50 mg IV .STK-MED ONE Enoxaparin Sodium 120 mg 08/30/23 15:52 Enoxaparin Sodium 120 Mg/0.8 Ml Syringe SQ 08/30/23 15:53 STAT STA Enoxaparin Sodium 80 mg 08/30/23 15:54 Enoxaparin Sodium 80 Mg/0.8 Ml Syringe SQ 08/30/23 15:55 STAT ONE Furosemide 20 mg 08/30/23 15:54 Furosemide 20 Mg/Vial IV 08/30/23 15:55 STAT ONE Potassium Chloride 20 meq in 100 mls @ 50 mls/hr 08/30/23 13:37 08/30/23 13:58 Potassium Chloride 20 Meq In Water 100ml IV 08/30/23 15:36 50 mls/hr STAT ONE Administration Potassium Chloride Confirm 08/30/23 13:55 Potassium Chloride 20 Meq In Water 100ml Administered 08/30/23 13:56 Dose 100 mls @ ud IV .STK-MED ONE Sodium Chloride Confirm 08/30/23 14:02 Sodium Chloride 0.9% 1000 Ml Administered 08/30/23 14:03 Dose 1,000 mls @ ud .ROUTE .STK-MED ONE Ceftriaxone Sodium/Dextrose 1 g in 50 mls @ 100 mls/hr 08/30/23 15:49 Rocephin 1 Gm-D5w 50 Ml Bag IV 08/30/23 16:18 STAT STA Potassium Chloride 20 meq 08/30/23 13:37 08/30/23 13:58 Potassium Chloride Tab 10 Meq Tab PO 08/30/23 13:38 20 meq STAT ONE Administration Potassium Chloride Confirm 08/30/23 13:55 Potassium Chloride Tab 10 Meq Tab Administered 08/30/23 13:56 Dose 20 meq PO .STK-MED ONE Lab/Rad Data: Laboratory Result Diagrams 08/30/23 12:30 Laboratory Results 08/30/23 08/30/23 08/30/23 Range/Units 13:58 12:30 12:30 WBC (4.0-10.5) x10^3/uL RBC (4.1-5.6) x10^6/uL Hgb (12.5-18.0) g/dL Hct (42-50) % MCV (78-100) fL MCH (26-32) pg MCHC (32-36) g/dL RDW (11.5-14.0) % Plt Count (150-450) x10^3/uL MPV (7.5-11.0) fL Gran % (36.0-66.0) % Immature Gran % (Auto) (0.00-0.4) % Nucleat RBC Rel Count (0.00-0.1) % Eos # (Auto) (0-0.5) x10^3/uL Immature Gran # (Auto) (0.00-0.03) x10^3u/L Absolute Lymphs (auto) (1.0-4.6) x10^3/uL Absolute Monos (auto) (0.0-1.3) x10^3/uL Absolute Nucleated RBC (0.00-0.01) x10^3u/L Lymphocytes % (24.0-44.0) % Monocytes % (0.0-12.0) % Eosinophils % (0.00-5.0) % Basophils % (0.0-0.4) % Absolute Granulocytes (1.4-6.9) x10^3/uL Basophils # (0-0.4) x10^3/uL PT 12.0 (9.4-12.5) SECONDS INR 1.11 (0.8-3.0) D-Dimer 3.91 H* (0.0-0.50) mg/L Magnesium (1.6-2.3) mg/dL Troponin I 0.140 H* (0.000-0.034) ng/mL NT-Pro-B Natriuret Pep (<300) pg/mL Influenza Type A Ag NEGATIVE (NEGATIVE) Influenza Type B Ag NEGATIVE (NEGATIVE) RSV (PCR) NEGATIVE (NEGATIVE) SARS-CoV-2 (PCR) NEGATIVE (NEGATIVE) 08/30/23 08/30/23 Range/Units 12:30 12:30 WBC 10.1 (4.0-10.5) x10^3/uL RBC 4.70 (4.1-5.6) x10^6/uL Hgb 13.6 (12.5-18.0) g/dL Hct 42.6 (42-50) % MCV 90.6 (78-100) fL MCH 28.9 (26-32) pg MCHC 31.9 L (32-36) g/dL RDW 15.1 H (11.5-14.0) % Plt Count 275 (150-450) x10^3/uL MPV 10.5 (7.5-11.0) fL Gran % 70.1 H (36.0-66.0) % Immature Gran % (Auto) 0.4 (0.00-0.4) % Nucleat RBC Rel Count 0.2 H (0.00-0.1) % Eos # (Auto) 0.11 (0-0.5) x10^3/uL Immature Gran # (Auto) 0.04 H (0.00-0.03) x10^3u/L Absolute Lymphs (auto) 2.02 (1.0-4.6) x10^3/uL Absolute Monos (auto) 0.80 (0.0-1.3) x10^3/uL Absolute Nucleated RBC 0.02 H (0.00-0.01) x10^3u/L Lymphocytes % 19.9 L (24.0-44.0) % Monocytes % 7.9 (0.0-12.0) % Eosinophils % 1.1 (0.00-5.0) % Basophils % 0.6 (0.0-0.4) % Absolute Granulocytes 7.11 H (1.4-6.9) x10^3/uL Basophils # 0.06 (0-0.4) x10^3/uL PT (9.4-12.5) SECONDS INR (0.8-3.0) D-Dimer (0.0-0.50) mg/L Magnesium 1.6 (1.6-2.3) mg/dL Troponin I (0.000-0.034) ng/mL NT-Pro-B Natriuret Pep 2660 (<300) pg/mL Influenza Type A Ag (NEGATIVE) Influenza Type B Ag (NEGATIVE) RSV (PCR) (NEGATIVE) SARS-CoV-2 (PCR) (NEGATIVE) - Progress Progress: improved, re-examined, unchanged Air Movement: fair Progress Note: 08/30/23 13:49 This patient's medical issue is 1 of high complexity. Level complex in the work-up performed is based on review the patient's past medical history, review of the patient's medication list, review of the patient's drug allergy list, history of present illness and physical findings on examination. The work-up includes placement of intravenous line, infusion of K rider, oral potassium, twelve-lead EKG, troponin level, D-dimer level, CBC and magnesium level. I am not repeating the CMP that was performed at 11:00 AM today. I will also provide the patient with 15 mg of intravenous Cardizem. 08/30/23 15:49 CT scan of the chest with contrast shows no central pulmonary embolus. There is cardiomegaly without diane signs of congestive heart failure. Posterior right lung base shows opacities with small effusions. Rule out pneumonia 08/30/23 16:57 There was some question in the patient's mind whether or not he wanted to be admitted into any hospital. He has opted to stay. I spoke with our telehospitalist on-call Dr. Gonzalez. I reviewed the patient history, patient's presenting complaint, work-up performed and work-up results as well as response to our intervention. He accepts the patient to be admitted into the hospital. Blood Culture(s) Obtained: No Antibiotics given: Yes Discussed with Dr.: Other (dr. gonzalez) Counseled pt/family regarding: lab results, diagnosis, rad results - Departure Departure Disposition: In-patient Admission Clinical Impression: Atrial fibrillation with RVR, Shortness of breath, Elevated troponin, Hypokalemia Condition: Fair Critical Care Time: Yes Critical Care Time(excluding separately billable procedures): Critical 30-74 mins (45 minutes) Referrals: KATHIE BRICE MD [CONSULTING PHYSICIAN] - Follow up/PCP as directed
[2023-08-30] MEDS ORDERED: Cardizem IV 50 MG/10 ML IV ONE ×2 (13:35→13:55)
[2023-08-30] MEDS ORDERED: Klor Con PO ONE ×2 (13:37→13:55)
[2023-08-30] MEDS ORDERED: POTASSIUM CHLORIDE 20 mEq IN WATER 100ML 20 MEQ/100 ML BAG IV ONE (13:37)
[2023-08-30 13:44] LABS: Absolute Neutrophil Ct (ANC) 7.11 x10^3/uL (1.4-6.9); BASOPHIL % 0.6 % (0.0-0.4); Basophil (Absolute #) 0.06 x10^3/uL (0-0.4); Eosinophil % 1.1 % (0.00-5.0); Eosinophil (Absolute #) 0.11 x10^3/uL (0-0.5); Hematocrit 42.6 % (42-50); Hemoglobin 13.6 g/dL (12.5-18.0); IMMATURE GRAN # 0.04 x10^3u/L (0.00-0.03); IMMATURE GRAN % 0.4 % (0.00-0.4); Lymphocyte (Absolute #) 2.02 x10^3/uL (1.0-4.6); Lymphocytes % 19.9 % (24.0-44.0); Mean Cell Volume 90.6 fL (78-100); Mean Corpuscular Hemoglobin 28.9 pg (26-32); Mean Corpuscular Hgb Concent. 31.9 g/dL (32-36); Mean Platelet Volume 10.5 fL (7.5-11.0); Monocytes % 7.9 % (0.0-12.0); NUCLEATED RBC # 0.02 x10^3u/L (0.00-0.01); NUCLEATED RBC % 0.2 % (0.00-0.1); Neutrophil % 70.1 % (36.0-66.0); Platelet Count 275 x10^3/uL (150-450); Red Cell Distribution Width 15.1 % (11.5-14.0); White Blood Count 10.1 x10^3/uL (4.0-10.5)
[2023-08-30] MEDS ORDERED: POTASSIUM CHLORIDE 20 mEq IN WATER 100ML 100 ML IV ONE (13:55)
[2023-08-30] MEDS ORDERED: Sodium Chloride 0.9% 1000 ML 1,000 ML ONE (14:02)
[2023-08-30 14:05] LABS: MAGNESIUM 1.6 mg/dL (1.6-2.3)
[2023-08-30] MEDS ORDERED: Sodium Chloride 0.9% 1000 ML 1,000 ML IV SCH ×2 (14:15→17:47)
[2023-08-30 14:17] LABS: INR 1.11 (0.8-3.0)
[2023-08-30 14:18] LABS: D-DIMER QUANTITATIVE 3.91 mg/L (0.0-0.50)
[2023-08-30 14:40] LABS: INFLUENZA A NEGATIVE (NEGATIVE); INFLUENZA B NEGATIVE (NEGATIVE); RESPIRATORY SYNCTIAL VIRUS NEGATIVE (NEGATIVE); SARS-CoV-2 Xpert Express NEGATIVE (NEGATIVE)
--- NOTE | 2023-08-30 15:28 | XRAY ---
Indication: Short of breath. Elevated d-dimer. History atrial fibrillation. Multiple contiguous axial images obtained through the chest using 100 cc Isovue 370 contrast and PE protocol. Comparison: None Good opacification of the pulmonary arteries to include the lobar and segmental branches. Mild respiration artifact limits evaluation of the more distal lobar and segmental branches. No central pulmonary embolus. Heart is enlarged. Aorta is normal in course and caliber. A few tiny mediastinal calcified nodes. No pathologic mediastinal/hilar lymphadenopathy. Lungs demonstrates mild posterior right lung base groundglass airspace opacities with small right effusion. Minimal left base subsegmental atelectasis/scarring. No suspicious pulmonary mass/nodule. Bony thorax intact with mild degenerative changes throughout the spine. Limited upper abdomen demonstrates fatty liver. Impression: 1. Pulmonary embolus evaluation limited by respiration artifact. No central pulmonary was. 2. Cardiomegaly without diane CHF. 3. Posterior right lung base groundglass opacities with small effusion. Rule out pneumonia. 4. Chronic findings including fatty liver, degenerative spondylosis, and old granulomatous disease.
[2023-08-30] MEDS ORDERED: ROCEPHIN 1 Gm-D5w 50 ml Bag** 1 G/50 ML IVPB IV STA (15:49)
[2023-08-30] MEDS ORDERED: ENOXAPARIN SODIUM SQ STA (15:52)
[2023-08-30] MEDS ORDERED: Lasix 20 MG/2 ML IV ONE (15:54)
[2023-08-30] MEDS ORDERED: ENOXAPARIN SODIUM SQ ONE ×3 (15:54→17:21)
--- NOTE | 2023-08-30 16:52 | PCM.HP ---
History of Present Illness - Chief Complaint Chief Complaint: A- fib RVR Date: 08/30/23 History of Present Illness: is a 53 year old male with a PMHX of HTN, CAD, OR (2017), cardiomyopathy, morbid obesity, and sleep apnea. He was sent to ER from clinic secondary to low potassium level of 2.9 that was drawn at 11 AM. Patient also has had complaints of increasing shortness of breath over the last 2 weeks. He was told in [address] Oscar Brice, cardiology, that he had an arrhythmia issue. He is not on any medication for this. He has not seen cardiology since 2018. He is only taking aspirin and lisinopril per his report. Patient denies chest pain. He found found to be in atrial fibrillation in ER and started on a cardizem gtt. BP is stable. We are unable to consult cardiology or get an echo due to it being the weekend. Will trend troponins. He denies Abd. pain, N/V/D. He does explain that his PCP started him on doxycycline for a rash on BL arms and legs of unknown cause. He did not start this medication yet. - Review of Systems Constitutional: No Fever, No Chills Eyes: No Symptoms Ears, Nose, & Throat: No Symptoms Respiratory: Short Of Breath, No Cough Cardiac: No Chest Pain, No Edema, No Syncope Abdominal/Gastrointestinal: Other (+ gas), No Abdominal Pain, No Nausea, No Vomiting, No Diarrhea Genitourinary Symptoms: No Dysuria Musculoskeletal: No Back Pain, No Neck Pain Skin: Pruritis (with rash on BL arms and legs), No Rash Neurological: No Dizziness, No Focal Weakness, No Sensory Changes Psychological: No Symptoms Endocrine: No Symptoms Hematologic/Lymphatic: No Symptoms Immunological/Allergic: No Symptoms Medications & Allergies Home Medications: Home Medication List Lisinopril/Hydrochlorothiazide [Lisinopril-Hctz 20-25 mg Tab] 1 tab PO BID 08/13/19 [History Confirmed 08/30/23] Aspirin [Aspirin EC] 81 mg PO DAILY #30 tablet. 08/14/19 [Rx Confirmed 08/30/23] Allergies/Adverse Reactions: Allergies Allergy/AdvReac Type Severity Reaction Status Date / Time No Known Drug Allergies Allergy Verified 08/30/23 12:33 - Past Medical History Past Medical History: Yes Neurological History: No Pertinent History ENT History: No Pertinent History Cardiac History: Coronary Artery Disease, Myocardial Infarction (OR), Other Respiratory History: Sleep Apnea Endocrine Medical History: No Pertinent History Musculoskelatal History: No Pertinent History GI Medical History: Hernia History: No Pertinent History Pyscho-Social History: No Pertinent History Male Reproductive Disorders: No Pertinent History Comment: heart cath in 12/2016 in [place]-no stent placed - Past Surgical History Past Surgical History: No Cardiac History: Cardiac Catheterization - Social History Smoking Status: Current every day smoker How long have you smoked: 35 years Exposure to second hand smoke: No Alcohol: None Drug Use: none Significant Family History: hypertension - Physical Exam Vital Signs: Vital Signs - 24 hr Temp Pulse Resp BP Pulse Ox 08/30/23 13:02 95 08/30/23 12:20 96.3 F 135 H 14 137/89 97 General Appearance: no apparent distress, alert Neurologic Exam: alert, oriented x 3, cooperative, normal mood/affect, nml cerebellar function, nml station & gait, sensation nml, No motor deficits Eye Exam: PERRL/EOMI, eyes nml inspection Ears, Nose, Throat Exam: normal ENT inspection, TMs normal, pharynx normal, moist mucous membranes Neck Exam: normal inspection, non-tender, supple, full range of motion Respiratory Exam: normal breath sounds, lungs clear, No respiratory distress Cardiovascular Exam: normal heart sounds, normal peripheral pulses, irregular Gastrointestinal/Abdomen Exam: soft, normal bowel sounds, No tenderness, No mass Back Exam: normal inspection, normal range of motion, No CVA tenderness, No vertebral tenderness Extremity Exam: normal inspection, normal range of motion, pelvis stable Skin Exam: normal color, warm, dry, rash (BL arms and legs. Small red raised rash. no pattern) Lymphatic Exam: No adenopathy Results - Labs Lab/Micro Results: Lab Results-Last 24 Hours 08/30/23 08/30/23 08/30/23 Range/Units 12:30 12:30 12:30 WBC 10.1 (4.0-10.5) x10^3/uL RBC 4.70 (4.1-5.6) x10^6/uL Hgb 13.6 (12.5-18.0) g/dL Hct 42.6 (42-50) % MCV 90.6 (78-100) fL MCH 28.9 (26-32) pg MCHC 31.9 L (32-36) g/dL RDW 15.1 H (11.5-14.0) % Plt Count 275 (150-450) x10^3/uL MPV 10.5 (7.5-11.0) fL Gran % 70.1 H (36.0-66.0) % Immature Gran % (Auto) 0.4 (0.00-0.4) % Nucleat RBC Rel Count 0.2 H (0.00-0.1) % Eos # (Auto) 0.11 (0-0.5) x10^3/uL Immature Gran # (Auto) 0.04 H (0.00-0.03) x10^3u/L Absolute Lymphs (auto) 2.02 (1.0-4.6) x10^3/uL Absolute Monos (auto) 0.80 (0.0-1.3) x10^3/uL Absolute Nucleated RBC 0.02 H (0.00-0.01) x10^3u/L Lymphocytes % 19.9 L (24.0-44.0) % Monocytes % 7.9 (0.0-12.0) % Eosinophils % 1.1 (0.00-5.0) % Basophils % 0.6 (0.0-0.4) % Absolute Granulocytes 7.11 H (1.4-6.9) x10^3/uL Basophils # 0.06 (0-0.4) x10^3/uL PT 12.0 (9.4-12.5) SECONDS INR 1.11 (0.8-3.0) D-Dimer 3.91 H* (0.0-0.50) mg/L Magnesium 1.6 (1.6-2.3) mg/dL Troponin I (0.000-0.034) ng/mL NT-Pro-B Natriuret Pep 2660 (<300) pg/mL Influenza Type A Ag (NEGATIVE) Influenza Type B Ag (NEGATIVE) RSV (PCR) (NEGATIVE) SARS-CoV-2 (PCR) (NEGATIVE) 08/30/23 08/30/23 Range/Units 12:30 13:58 WBC (4.0-10.5) x10^3/uL RBC (4.1-5.6) x10^6/uL Hgb (12.5-18.0) g/dL Hct (42-50) % MCV (78-100) fL MCH (26-32) pg MCHC (32-36) g/dL RDW (11.5-14.0) % Plt Count (150-450) x10^3/uL MPV (7.5-11.0) fL Gran % (36.0-66.0) % Immature Gran % (Auto) (0.00-0.4) % Nucleat RBC Rel Count (0.00-0.1) % Eos # (Auto) (0-0.5) x10^3/uL Immature Gran # (Auto) (0.00-0.03) x10^3u/L Absolute Lymphs (auto) (1.0-4.6) x10^3/uL Absolute Monos (auto) (0.0-1.3) x10^3/uL Absolute Nucleated RBC (0.00-0.01) x10^3u/L Lymphocytes % (24.0-44.0) % Monocytes % (0.0-12.0) % Eosinophils % (0.00-5.0) % Basophils % (0.0-0.4) % Absolute Granulocytes (1.4-6.9) x10^3/uL Basophils # (0-0.4) x10^3/uL PT (9.4-12.5) SECONDS INR (0.8-3.0) D-Dimer (0.0-0.50) mg/L Magnesium (1.6-2.3) mg/dL Troponin I 0.140 H* (0.000-0.034) ng/mL NT-Pro-B Natriuret Pep (<300) pg/mL Influenza Type A Ag NEGATIVE (NEGATIVE) Influenza Type B Ag NEGATIVE (NEGATIVE) RSV (PCR) NEGATIVE (NEGATIVE) SARS-CoV-2 (PCR) NEGATIVE (NEGATIVE) - Radiology Impressions Radiology Exams & Impressions: Radiology Procedures Category Date Time Status CHEST WITH CONTRAST [CT] Stat Exams 08/30/23 14:24 Completed Assessment/Plan (1) Atrial fibrillation with RVR Current Visit: Yes Status: Acute Assessment & Plan: - tele - Keep K+ >4 and Mg+ > 2 - TSH, - CBC, CMP daily- CMP pending - Lipid panel in AM - Trend trop - 1st Trop elevated at 0.140 - Echo- will have to wait until Saturday - cardiology consult- will have to wait until Saturday - Continue ASA - Therapeutic Lovenox - Cardizem IV push and gtt started in ER - 10/06- Nuc med cardiac stress test: Impression: 1. Left ventricular hypertrophy. 2. Small focus infarct apical inferior wall. 3. No scintigraphic evidence for exercise induced reversible ischemia. 4. Low ejection fraction 44%. - Consider changing to Amiodarone gtt if needed Code(s): I48.91 - UNSPECIFIED ATRIAL FIBRILLATION (2) Elevated troponin Current Visit: Yes Status: Acute Assessment & Plan: - 1st trop elevated- trend - cardiology consult Code(s): R79.89 - OTHER SPECIFIED ABNORMAL FINDINGS OF BLOOD CHEMISTRY (3) Hypokalemia Current Visit: Yes Status: Acute Assessment & Plan: - replaced in ER - recheck in AM Code(s): E87.6 - HYPOKALEMIA (4) Shortness of breath Current Visit: Yes Status: Acute Assessment & Plan: - 2:2 A-fib RVR, CHF - Room air 95% - D-dimer 3.91- CT negative for PE - CT chest 08/30 Impression: 1. Pulmonary embolus evaluation limited by respiration artifact. No central pulmonary was. 2. Cardiomegaly without diane CHF. 3. Posterior right lung base groundglass opacities with small effusion. Rule out pneumonia. 4. Chronic findings including fatty liver, degenerative spondylosis, and old granulomatous disease. - Rocephin gave in ER for possible pneumonia - One time dose of Lasix gave in ER - Procal pending - Continue antibiotics for pneumonia coverage until procal is back. Code(s): R06.02 - SHORTNESS OF BREATH (5) Hypertension Current Visit: No Status: Acute Assessment & Plan: - stable - Continue Lisinopril Code(s): I10 - ESSENTIAL (PRIMARY) HYPERTENSION (6) Sleep apnea Current Visit: Yes Status: Acute Assessment & Plan: - Continue CPAP at night. - May use home CPAP Code(s): G47.30 - SLEEP APNEA, UNSPECIFIED (7) Cardiomegaly Current Visit: Yes Status: Acute Assessment & Plan: - as seen on CT - echo for further eval Code(s): I51.7 - CARDIOMEGALY (8) CHF (congestive heart failure) Current Visit: Yes Status: Acute Assessment & Plan: - BNP 2660 - Lasix started in ER- continue Code(s): I50.9 - HEART FAILURE, UNSPECIFIED (9) Obesity, morbid, BMI 40.0-49.9 Current Visit: Yes Status: Acute Assessment & Plan: - advised diet control Code(s): E66.01 - MORBID (SEVERE) OBESITY DUE TO EXCESS CALORIES (10) Rash Current Visit: Yes Status: Acute Assessment & Plan: - [employer]- rash of unknown cause - no recent new meds or detergents - hydrocortisone cream BID Code(s): R21 - RASH AND OTHER NONSPECIFIC SKIN ERUPTION (11) Smoker Current Visit: Yes Status: Acute Assessment & Plan: - advised cessation - nicotine patch VTE: Lovenox Code status: Full Next of Kin: D/C plan: when HR improved. Code(s): F17.200 - NICOTINE DEPENDENCE, UNSPECIFIED, UNCOMPLICATED Telemedicine Encounter - Telemedicine Encounter Telemedicine Encounter: The entirety of this encounter was performed via Telemedicine"
[2023-08-30] MEDS ORDERED: Lasix 20 MG/2 ML ONE (17:21)
[2023-08-30] MEDS ORDERED: ROCEPHIN 1 Gm-D5w 50 ml Bag** 1 G/50 ML IVPB IV ONE (17:21)
[2023-08-30] MEDS: CARDIZEM DRIP 100 MG/100 ML D5W 100 ML IV PRN (17:32)
[2023-08-30] MEDS ORDERED: Zofran 4 MG/2 ML VIAL IV PRN (17:47)
[2023-08-30] MEDS ORDERED: TYLENOL 325 MG PO PRN (17:47)
[2023-08-30 17:53] LABS: ALKALINE PHOSPHATASE 80 U/L (38-126); ANION GAP 14.4 MEQ/L (5-15); BLOOD UREA NITROGEN 17 mg/dL (9-20); CHLORIDE 99 mmol/L (98-107); Calcium 8.9 mg/dL (8.4-10.2); Carbon Dioxide 28 mmol/L (22-30); EST GLOMERULAR FILTRATION RATE > 60.0 ML/MIN; Glucose 110 mg/dL (74-106); PROCALCITONIN 0.113 ng/mL (0.030-0.080); Potassium 3.4 mmol/L (3.5-5.1); SGOT/AST 43 U/L (17-59); SGPT/ALT 35 U/L (0-50); SODIUM 137 mmol/L (137-145)
[2023-08-30 17:54] LABS: TROPONIN 0.134 ng/mL (0.000-0.034)
[2023-08-30] MEDS: ENOXAPARIN SODIUM SQ SCH (18:38)
[2023-08-30] MEDS ORDERED: MAG-OX 400 ONE (18:44)
[2023-08-30] MEDS: Nicoderm CQ 21 MG TOP SCH (18:45)
[2023-08-30] MEDS: CORTISONE 1% CREAM TP SCH (21:18)
[2023-08-30] MEDS: Coreg 3.125 MG PO SCH (21:18)
[2023-08-31] MEDS ORDERED: CARDIZEM DRIP 100 MG/100 ML D5W 100 ML IV ONE (03:57)
[2023-08-31] MEDS: CARDIZEM DRIP 100 MG/100 ML D5W 100 ML IV PRN (04:05)
[2023-08-31 05:29] LABS: Absolute Neutrophil Ct (ANC) 7.18 x10^3/uL (1.4-6.9); BASOPHIL % 0.7 % (0.0-0.4); Basophil (Absolute #) 0.08 x10^3/uL (0-0.4); Eosinophil % 1.3 % (0.00-5.0); Eosinophil (Absolute #) 0.14 x10^3/uL (0-0.5); Hematocrit 39.6 % (42-50); Hemoglobin 12.7 g/dL (12.5-18.0); IMMATURE GRAN # 0.03 x10^3u/L (0.00-0.03); IMMATURE GRAN % 0.3 % (0.00-0.4); Lymphocyte (Absolute #) 2.78 x10^3/uL (1.0-4.6); Lymphocytes % 25.3 % (24.0-44.0); Mean Cell Volume 89.2 fL (78-100); Mean Corpuscular Hemoglobin 28.6 pg (26-32); Mean Corpuscular Hgb Concent. 32.1 g/dL (32-36); Mean Platelet Volume 10.1 fL (7.5-11.0); Monocyte (Absolute #) 0.78 x10^3/uL (0.0-1.3); Monocytes % 7.1 % (0.0-12.0); Neutrophil % 65.3 % (36.0-66.0); Platelet Count 247 x10^3/uL (150-450); Red Blood Count 4.44 x10^6/uL (4.1-5.6); Red Cell Distribution Width 15.8 % (11.5-14.0)
[2023-08-31] MEDS: ENOXAPARIN SODIUM SQ SCH ×2 (06:03→17:10)
[2023-08-31 06:16] LABS: ALKALINE PHOSPHATASE 80 U/L (38-126); ANION GAP 15.3 MEQ/L (5-15); BLOOD UREA NITROGEN 21 mg/dL (9-20); CHLORIDE 99 mmol/L (98-107); Calcium 8.8 mg/dL (8.4-10.2); Carbon Dioxide 26 mmol/L (22-30); Creatinine 1 1.24 mg/dL (0.66-1.25); EST GLOMERULAR FILTRATION RATE > 60.0 ML/MIN; Glucose 115 mg/dL (74-106); NT PRO BNPII 2640 pg/mL (<300); Potassium 3.3 mmol/L (3.5-5.1); SGOT/AST 45 U/L (17-59); SGPT/ALT 37 U/L (0-50); SODIUM 138 mmol/L (137-145)
[2023-08-31 06:39] LABS: Risk Ratio 4.5; TSH, 3RD Generation 2.67 mIU/L (0.47-4.68)
[2023-08-31] MEDS ORDERED: Klor Con PO ONE ×2 (08:00→17:36)
[2023-08-31] MEDS: ECOTRIN 81 MG PO SCH (08:16)
[2023-08-31] MEDS: Lasix 20 MG/2 ML IV SCH (08:16)
[2023-08-31] MEDS: ROCEPHIN 1 Gm-D5w 50 ml Bag** 1 G/50 ML IVPB IV SCH (08:17)
[2023-08-31] MEDS: CORTISONE 1% CREAM TP SCH ×2 (08:17→21:25)
[2023-08-31] MEDS: Mylicon 80MG PO PRN (08:17)
[2023-08-31] MEDS: Zithromax 500 MG/ 250 ML NaCl Premix 500 MG/250 ML IVPB IV SCH (08:17)
[2023-08-31] MEDS: Coreg 3.125 MG PO SCH ×2 (08:18→21:23)
[2023-08-31] MEDS ORDERED: ROCEPHIN 1 Gm-D5w 50 ml Bag** 1 G/50 ML IVPB IV SCH (10:00)
--- NOTE | 2023-08-31 10:20 | PCM.NOTE ---
Date and Time: 08/31/23 1015 Subjective Assessment: 08/30/23 is a 53 year old male with a PMHX of HTN, CAD, [place] (2017), cardiomyopathy, morbid obesity, and sleep apnea. He was sent to ER from clinic secondary to low potassium level of 2.9 that was drawn at 11 AM. Patient also has had complaints of increasing shortness of breath over the last 2 weeks. He was told in [address] Oscar Brice, cardiology, that he had an arrhythmia issue. He is not on any medication for this. He has not seen cardiology since 2018. He is only taking aspirin and lisinopril with HCTZ per his report. Patient denies chest pain. He found found to be in atrial fibrillation in ER and started on a cardizem gtt. BP is stable. We are unable to consult cardiology or get an echo due to it being the weekend. Will trend troponins. He denies Abd. pain, N/V/D. He does explain that his PCP started him on doxycycline for a rash on BL arms and legs of unknown cause. He did not start this medication yet. 08/31/23 Pt sitting up in chair. HR has improved. He continues to be in a-fib with HR 80- 90's. Will stop Cardizem gtt and start Amiodarone 400mg BID. Restarted Li sinopril without the HCTZ since we have him on Lasix. + hypokalemia this am- replaced. SOB has improved since admission. He continues to have some non- pitting edema. Continues Lasix. Procal slightly elevated- will continue antibiotics. He denies CP, Abd. pain, N/V/d. - Review of Systems Constitutional: No Fever, No Chills Eyes: No Symptoms Ears, Nose, & Throat: No Symptoms Respiratory: Orthopnea, Short Of Breath, No Cough Cardiac: Edema, No Chest Pain, No Syncope Abdominal/Gastrointestinal: No Abdominal Pain, No Nausea, No Vomiting, No Diarrhea Genitourinary Symptoms: No Dysuria Musculoskeletal: No Back Pain, No Neck Pain Skin: No Rash Neurological: No Dizziness, No Focal Weakness, No Sensory Changes Psychological: No Symptoms Endocrine: No Symptoms Hematologic/Lymphatic: No Symptoms Immunological/Allergic: No Symptoms Objective Exam General Appearance: no apparent distress, alert, obese Neurologic Exam: alert, oriented x 3, cooperative, normal mood/affect, nml cerebellar function, sensation nml, No motor deficits Skin Exam: normal color, warm, dry Eye Exam: PERRL, EOMI, eyes nml inspection Ears, Nose, Throat Exam: normal ENT inspection, pharynx normal, moist mucous membranes Neck Exam: normal inspection, non-tender, supple, full range of motion Respiratory Exam: normal breath sounds, lungs clear, No respiratory distress Cardiovascular Exam: regular rate/rhythm, normal heart sounds, edema (non-p itting) Gastrointestinal/Abdomen Exam: soft, No tenderness, No mass Extremity Exam: normal inspection, normal range of motion Back Exam: normal inspection, normal range of motion, No CVA tenderness, No vertebral tenderness Male Genitalia Exam: deferred Rectal Exam: deferred OBJECTIVE DATA Vital Signs: Vital Signs - 24 hr Temp Pulse Resp BP BP Pulse Ox 08/31/23 10:00 89 108/77 08/31/23 09:00 84 18 127/83 08/31/23 08:08 62 16 94 L 08/31/23 08:00 94 H 22 08/31/23 07:59 80 08/31/23 07:40 76 16 122/93 93 L 08/31/23 07:00 74 15 122/93 08/31/23 06:00 80 14 104/66 08/31/23 05:00 105 H 20 113/88 08/31/23 04:05 90 14 129/86 08/31/23 04:00 97.9 F 90 14 129/86 129/86 94 L 08/31/23 03:00 89 15 123/96 08/31/23 02:00 94 H 20 108/77 08/31/23 01:00 106 H 22 126/97 08/31/23 00:01 96 H 08/31/23 00:00 98.7 F 96 H 20 146/92 146/92 96 08/30/23 23:00 101 H 20 103/74 08/30/23 22:00 101 H 20 139/98 08/30/23 21:00 102 H 21 123/94 123/94 95 08/30/23 20:00 97.9 F 99 H 22 128/82 128/82 94 L 08/30/23 19:50 102 H 20 94 L 08/30/23 18:58 112 H 22 142/77 08/30/23 18:26 109 H 18 126/100 08/30/23 18:12 109 H 23 126/90 95 08/30/23 18:06 113 H 20 95 08/30/23 17:47 95 08/30/23 17:32 114 H 17 152/84 08/30/23 17:31 152/84 08/30/23 17:04 99 H 25 H 119/97 08/30/23 17:03 100 H 20 08/30/23 17:02 107 H 21 08/30/23 16:31 93 H 20 92/75 08/30/23 16:02 110 H 31 H 121/101 97 08/30/23 15:31 98 H 21 121/94 96 08/30/23 15:30 103 H 15 97 08/30/23 15:20 105 H 21 97 08/30/23 15:18 97 H 13 152/84 96 08/30/23 14:01 106 H 15 133/79 94 L 08/30/23 13:35 94 L 08/30/23 13:31 119 H 15 157/90 98 08/30/23 13:02 95 08/30/23 13:01 111 H 20 126/88 95 08/30/23 12:30 117 H 17 137/89 96 08/30/23 12:20 96.3 F 135 H 14 137/89 97 Pain Assessment - Last Documented Pain Intensity 0 Intake and Output: Intake & Output 08/28/23 08/29/23 08/30/23 08/31/23 11:59 11:59 11:59 11:59 Intake Total 1501 Output Total 1825 Balance -324 Weight 200.5 kg Lab Results: Lab Results-Last 24 Hours 08/30/23 08/30/23 08/30/23 Range/Units 12:30 12:30 12:30 WBC 10.1 (4.0-10.5) x10^3/uL RBC 4.70 (4.1-5.6) x10^6/uL Hgb 13.6 (12.5-18.0) g/dL Hct 42.6 (42-50) % MCV 90.6 (78-100) fL MCH 28.9 (26-32) pg MCHC 31.9 L (32-36) g/dL RDW 15.1 H (11.5-14.0) % Plt Count 275 (150-450) x10^3/uL MPV 10.5 (7.5-11.0) fL Gran % 70.1 H (36.0-66.0) % Immature Gran % (Auto) 0.4 (0.00-0.4) % Nucleat RBC Rel Count 0.2 H (0.00-0.1) % Eos # (Auto) 0.11 (0-0.5) x10^3/uL Immature Gran # (Auto) 0.04 H (0.00-0.03) x10^3u/L Absolute Lymphs (auto) 2.02 (1.0-4.6) x10^3/uL Absolute Monos (auto) 0.80 (0.0-1.3) x10^3/uL Absolute Nucleated RBC 0.02 H (0.00-0.01) x10^3u/L Lymphocytes % 19.9 L (24.0-44.0) % Monocytes % 7.9 (0.0-12.0) % Eosinophils % 1.1 (0.00-5.0) % Basophils % 0.6 (0.0-0.4) % Absolute Granulocytes 7.11 H (1.4-6.9) x10^3/uL Basophils # 0.06 (0-0.4) x10^3/uL PT 12.0 (9.4-12.5) SECONDS INR 1.11 (0.8-3.0) D-Dimer 3.91 H* (0.0-0.50) mg/L Sodium (137-145) mmol/L Potassium (3.5-5.1) mmol/L Chloride (98-107) mmol/L Carbon Dioxide (22-30) mmol/L Anion Gap (5-15) MEQ/L BUN (9-20) mg/dL Creatinine (0.66-1.25) mg/dL Estimated GFR ML/MIN Glucose (74-106) mg/dL POC Glucometer (74 to 106) mg/dL Calcium (8.4-10.2) mg/dL Magnesium 1.6 (1.6-2.3) mg/dL Total Bilirubin (0.2-1.3) mg/dL AST (17-59) U/L ALT (0-50) U/L Alkaline Phosphatase (38-126) U/L Troponin I (0.000-0.034) ng/mL NT-Pro-B Natriuret Pep 2660 (<300) pg/mL Serum Total Protein (6.3-8.2) g/dL Albumin (3.5-5.0) g/dL Triglycerides (30-150) mg/dL Cholesterol (50-200) mg/dL LDL Cholesterol (30-100) mg/dL HDL Cholesterol (40-60) mg/dL Heart Disease Risk Ratio Procalcitonin (0.030-0.080) ng/mL TSH 3rd Generation (0.47-4.68) mIU/L Influenza Type A Ag (NEGATIVE) Influenza Type B Ag (NEGATIVE) RSV (PCR) (NEGATIVE) SARS-CoV-2 (PCR) (NEGATIVE) 08/30/23 08/30/23 08/30/23 Range/Units 12:30 13:58 17:15 WBC (4.0-10.5) x10^3/uL RBC (4.1-5.6) x10^6/uL Hgb (12.5-18.0) g/dL Hct (42-50) % MCV (78-100) fL MCH (26-32) pg MCHC (32-36) g/dL RDW (11.5-14.0) % Plt Count (150-450) x10^3/uL MPV (7.5-11.0) fL Gran % (36.0-66.0) % Immature Gran % (Auto) (0.00-0.4) % Nucleat RBC Rel Count (0.00-0.1) % Eos # (Auto) (0-0.5) x10^3/uL Immature Gran # (Auto) (0.00-0.03) x10^3u/L Absolute Lymphs (auto) (1.0-4.6) x10^3/uL Absolute Monos (auto) (0.0-1.3) x10^3/uL Absolute Nucleated RBC (0.00-0.01) x10^3u/L Lymphocytes % (24.0-44.0) % Monocytes % (0.0-12.0) % Eosinophils % (0.00-5.0) % Basophils % (0.0-0.4) % Absolute Granulocytes (1.4-6.9) x10^3/uL Basophils # (0-0.4) x10^3/uL PT (9.4-12.5) SECONDS INR (0.8-3.0) D-Dimer (0.0-0.50) mg/L Sodium 137 (137-145) mmol/L Potassium 3.4 L (3.5-5.1) mmol/L Chloride 99 (98-107) mmol/L Carbon Dioxide 28 (22-30) mmol/L Anion Gap 14.4 (5-15) MEQ/L BUN 17 (9-20) mg/dL Creatinine 1.20 (0.66-1.25) mg/dL Estimated GFR > 60.0 ML/MIN Glucose 110 H (74-106) mg/dL POC Glucometer (74 to 106) mg/dL Calcium 8.9 (8.4-10.2) mg/dL Magnesium (1.6-2.3) mg/dL Total Bilirubin 1.10 (0.2-1.3) mg/dL AST 43 (17-59) U/L ALT 35 (0-50) U/L Alkaline Phosphatase 80 (38-126) U/L Troponin I 0.140 H* 0.134 H* (0.000-0.034) ng/mL NT-Pro-B Natriuret Pep (<300) pg/mL Serum Total Protein 7.0 (6.3-8.2) g/dL Albumin 4.0 (3.5-5.0) g/dL Triglycerides (30-150) mg/dL Cholesterol (50-200) mg/dL LDL Cholesterol (30-100) mg/dL HDL Cholesterol (40-60) mg/dL Heart Disease Risk Ratio Procalcitonin 0.113 H (0.030-0.080) ng/mL TSH 3rd Generation (0.47-4.68) mIU/L Influenza Type A Ag NEGATIVE (NEGATIVE) Influenza Type B Ag NEGATIVE (NEGATIVE) RSV (PCR) NEGATIVE (NEGATIVE) SARS-CoV-2 (PCR) NEGATIVE (NEGATIVE) 08/30/23 08/31/23 08/31/23 Range/Units 21:47 00:12 05:00 WBC (4.0-10.5) x10^3/uL RBC (4.1-5.6) x10^6/uL Hgb (12.5-18.0) g/dL Hct (42-50) % MCV (78-100) fL MCH (26-32) pg MCHC (32-36) g/dL RDW (11.5-14.0) % Plt Count (150-450) x10^3/uL MPV (7.5-11.0) fL Gran % (36.0-66.0) % Immature Gran % (Auto) (0.00-0.4) % Nucleat RBC Rel Count (0.00-0.1) % Eos # (Auto) (0-0.5) x10^3/uL Immature Gran # (Auto) (0.00-0.03) x10^3u/L Absolute Lymphs (auto) (1.0-4.6) x10^3/uL Absolute Monos (auto) (0.0-1.3) x10^3/uL Absolute Nucleated RBC (0.00-0.01) x10^3u/L Lymphocytes % (24.0-44.0) % Monocytes % (0.0-12.0) % Eosinophils % (0.00-5.0) % Basophils % (0.0-0.4) % Absolute Granulocytes (1.4-6.9) x10^3/uL Basophils # (0-0.4) x10^3/uL PT (9.4-12.5) SECONDS INR (0.8-3.0) D-Dimer (0.0-0.50) mg/L Sodium (137-145) mmol/L Potassium (3.5-5.1) mmol/L Chloride (98-107) mmol/L Carbon Dioxide (22-30) mmol/L Anion Gap (5-15) MEQ/L BUN (9-20) mg/dL Creatinine (0.66-1.25) mg/dL Estimated GFR ML/MIN Glucose (74-106) mg/dL POC Glucometer 108 H (74 to 106) mg/dL Calcium (8.4-10.2) mg/dL Magnesium 1.7 (1.6-2.3) mg/dL Total Bilirubin (0.2-1.3) mg/dL AST (17-59) U/L ALT (0-50) U/L Alkaline Phosphatase (38-126) U/L Troponin I 0.124 H* (0.000-0.034) ng/mL NT-Pro-B Natriuret Pep (<300) pg/mL Serum Total Protein (6.3-8.2) g/dL Albumin (3.5-5.0) g/dL Triglycerides (30-150) mg/dL Cholesterol (50-200) mg/dL LDL Cholesterol (30-100) mg/dL HDL Cholesterol (40-60) mg/dL Heart Disease Risk Ratio Procalcitonin (0.030-0.080) ng/mL TSH 3rd Generation (0.47-4.68) mIU/L Influenza Type A Ag (NEGATIVE) Influenza Type B Ag (NEGATIVE) RSV (PCR) (NEGATIVE) SARS-CoV-2 (PCR) (NEGATIVE) 08/31/23 08/31/23 08/31/23 Range/Units 05:18 05:18 05:18 WBC 11.0 H (4.0-10.5) x10^3/uL RBC 4.44 (4.1-5.6) x10^6/uL Hgb 12.7 (12.5-18.0) g/dL Hct 39.6 L (42-50) % MCV 89.2 (78-100) fL MCH 28.6 (26-32) pg MCHC 32.1 (32-36) g/dL RDW 15.8 H (11.5-14.0) % Plt Count 247 (150-450) x10^3/uL MPV 10.1 (7.5-11.0) fL Gran % 65.3 (36.0-66.0) % Immature Gran % (Auto) 0.3 (0.00-0.4) % Nucleat RBC Rel Count 0.0 (0.00-0.1) % Eos # (Auto) 0.14 (0-0.5) x10^3/uL Immature Gran # (Auto) 0.03 (0.00-0.03) x10^3u/L Absolute Lymphs (auto) 2.78 (1.0-4.6) x10^3/uL Absolute Monos (auto) 0.78 (0.0-1.3) x10^3/uL Absolute Nucleated RBC 0.00 (0.00-0.01) x10^3u/L Lymphocytes % 25.3 (24.0-44.0) % Monocytes % 7.1 (0.0-12.0) % Eosinophils % 1.3 (0.00-5.0) % Basophils % 0.7 (0.0-0.4) % Absolute Granulocytes 7.18 H (1.4-6.9) x10^3/uL Basophils # 0.08 (0-0.4) x10^3/uL PT (9.4-12.5) SECONDS INR (0.8-3.0) D-Dimer (0.0-0.50) mg/L Sodium 138 (137-145) mmol/L Potassium 3.3 L (3.5-5.1) mmol/L Chloride 99 (98-107) mmol/L Carbon Dioxide 26 (22-30) mmol/L Anion Gap 15.3 H (5-15) MEQ/L BUN 21 H (9-20) mg/dL Creatinine 1.24 (0.66-1.25) mg/dL Estimated GFR > 60.0 ML/MIN Glucose 115 H (74-106) mg/dL POC Glucometer (74 to 106) mg/dL Calcium 8.8 (8.4-10.2) mg/dL Magnesium (1.6-2.3) mg/dL Total Bilirubin 1.40 H (0.2-1.3) mg/dL AST 45 (17-59) U/L ALT 37 (0-50) U/L Alkaline Phosphatase 80 (38-126) U/L Troponin I (0.000-0.034) ng/mL NT-Pro-B Natriuret Pep 2640 (<300) pg/mL Serum Total Protein 7.0 (6.3-8.2) g/dL Albumin 4.0 (3.5-5.0) g/dL Triglycerides 99 (30-150) mg/dL Cholesterol 160 (50-200) mg/dL LDL Cholesterol 109 H (30-100) mg/dL HDL Cholesterol 36 L (40-60) mg/dL Heart Disease Risk Ratio 4.5 Procalcitonin (0.030-0.080) ng/mL TSH 3rd Generation 2.670 (0.47-4.68) mIU/L Influenza Type A Ag (NEGATIVE) Influenza Type B Ag (NEGATIVE) RSV (PCR) (NEGATIVE) SARS-CoV-2 (PCR) (NEGATIVE) Radiology Exams: Radiology Procedures Category Date Time Status CHEST WITH CONTRAST [CT] Stat Exams 08/30/23 14:24 Completed ECHO W/2D AND DOPPLER [US] Routine Exams 08/30/23 17:47 Ordered Assessment/Plan (1) Atrial fibrillation with RVR Current Visit: Yes Status: Acute Assessment & Plan: - tele - Keep K+ >4 and Mg+ > 2 - TSH, - CBC, CMP daily- CMP pending - Lipid panel in AM - Trend trop - 1st Trop elevated at 0.140 - Echo- will have to wait until Saturday - cardiology consult- will have to wait until Saturday - Continue ASA - coreg 3.125 BID - Therapeutic Lovenox - Cardizem IV push and gtt started in ER - 10/06- Nuc med cardiac stress test: Impression: 1. Left ventricular hypertrophy. 2. Small focus infarct apical inferior wall. 3. No scintigraphic evidence for exercise induced reversible ischemia. 4. Low ejection fraction 44%. 08/31 - Continued A-fib with controlled rhythm 80's-90's -Stop cardizem gtt -Start amiodarone 400mg BID Code(s): I48.91 - UNSPECIFIED ATRIAL FIBRILLATION (2) Elevated troponin Current Visit: Yes Status: Acute Assessment & Plan: - tren trop elevated- 0.140, 0.134, 0.124- trended down - cardiology consult- not able to contact until Saturday Code(s): R79.89 - OTHER SPECIFIED ABNORMAL FINDINGS OF BLOOD CHEMISTRY (3) Hypokalemia Current Visit: Yes Status: Acute Assessment & Plan: Assessment & Plan: - replaced in ER - recheck in AM 08/31 -K+ 3.3- replaced Code(s): E87.6 - HYPOKALEMIA (4) Shortness of breath Current Visit: Yes Status: Acute Assessment & Plan: 2:2 A-fib RVR, CHF, pneumonia - Room air 95% - D-dimer 3.91- CT negative for PE - CT chest 10/13 Impression: 1. Pulmonary embolus evaluation limited by respiration artifact. No central pulmonary was. 2. Cardiomegaly without diane CHF. 3. Posterior right lung base groundglass opacities with small effusion. Rule out pneumonia. 4. Chronic findings including fatty liver, degenerative spondylosis, and old granulomatous disease. - Rocephin gave in ER for possible pneumonia - One time dose of Lasix gave in ER - Procal pending - Continue antibiotics for pneumonia coverage until procal is back. 08/31 - Procal elevated- continue antibiotics - Continue Lasix Code(s): R06.02 - SHORTNESS OF BREATH (5) Hypertension Current Visit: No Status: Acute Assessment & Plan: - stable - Continue Lisinopril without HCTZ - Started Coreg Code(s): I10 - ESSENTIAL (PRIMARY) HYPERTENSION (6) Sleep apnea Current Visit: Yes Status: Acute Assessment & Plan: - Continue CPAP at night. - May use home CPAP Code(s): G47.30 - SLEEP APNEA, UNSPECIFIED (7) Cardiomegaly Current Visit: Yes Status: Acute Assessment & Plan: - as seen on CT - echo for further eval- will have to wait until Saturday Code(s): I51.7 - CARDIOMEGALY (8) CHF (congestive heart failure) Current Visit: Yes Status: Acute Assessment & Plan: - BNP 2660- on admission - Lasix started in ER- continue - Coreg, ASA - Room air - Non-pitting edema Code(s): I50.9 - HEART FAILURE, UNSPECIFIED (9) Pneumonia Current Visit: Yes Status: Acute Assessment & Plan: - as seen on CT - Procal elevated - Rocephin and azithromycin Code(s): J18.9 - PNEUMONIA, UNSPECIFIED ORGANISM (10) Obesity, morbid, BMI 40.0-49.9 Current Visit: Yes Status: Acute Assessment & Plan: - advised diet control Code(s): E66.01 - MORBID (SEVERE) OBESITY DUE TO EXCESS CALORIES (11) Rash Current Visit: Yes Status: Acute Assessment & Plan: - [employer]- rash of unknown cause - no recent new meds or detergents - hydrocortisone cream BID 08/31 - improving Code(s): R21 - RASH AND OTHER NONSPECIFIC SKIN ERUPTION (12) Smoker Current Visit: Yes Status: Acute Assessment & Plan: - advised cessation - nicotine patch VTE: Lovenox Code status: Full Next of Kin: D/C plan: when HR improved. Code(s): F17.200 - NICOTINE DEPENDENCE, UNSPECIFIED, UNCOMPLICATED
[2023-08-31] MEDS: Zestril 20 MG PO SCH ×2 (10:37→21:25)
[2023-08-31] MEDS: Cordarone 200 MG PO SCH ×2 (10:38→21:25)
[2023-08-31] MEDS ORDERED: MAG-OX 400 PO ONE ×2 (11:30→17:31)
[2023-08-31] MEDS: Nicoderm CQ 21 MG TOP SCH (17:09)
[2023-08-31 17:33] LABS: ANION GAP 11.5 MEQ/L (5-15); Potassium 3.6 mmol/L (3.5-5.1)
[2023-08-31] MEDS: PATIENT OWN MEDICATION IH SCH (19:37)
[2023-09-01] MEDS: ENOXAPARIN SODIUM SQ SCH ×2 (05:22→17:19)
[2023-09-01 05:39] LABS: Hemoglobin 12.3 g/dL (12.5-18.0); Mean Cell Volume 92.2 fL (78-100); Mean Corpuscular Hemoglobin 29.1 pg (26-32); Mean Corpuscular Hgb Concent. 31.5 g/dL (32-36); Mean Platelet Volume 10.2 fL (7.5-11.0); Platelet Count 217 x10^3/uL (150-450); Red Blood Count 4.23 x10^6/uL (4.1-5.6); Red Cell Distribution Width 15.6 % (11.5-14.0); White Blood Count 10.1 x10^3/uL (4.0-10.5)
[2023-09-01 06:04] LABS: ALBUMIN 3.6 g/dL (3.5-5.0); ALKALINE PHOSPHATASE 73 U/L (38-126); ANION GAP 12.1 MEQ/L (5-15); BLOOD UREA NITROGEN 30 mg/dL (9-20); CHLORIDE 98 mmol/L (98-107); Calcium 8.2 mg/dL (8.4-10.2); Carbon Dioxide 25 mmol/L (22-30); EST GLOMERULAR FILTRATION RATE > 60.0 ML/MIN; Glucose 94 mg/dL (74-106); MAGNESIUM 1.8 mg/dL (1.6-2.3); Potassium 3.1 mmol/L (3.5-5.1); SGOT/AST 71 U/L (17-59); SGPT/ALT 56 U/L (0-50); SODIUM 132 mmol/L (137-145); Total Protein 6.3 g/dL (6.3-8.2)
[2023-09-01] MEDS: Klor Con PO SCH ×3 (07:26→22:01)
[2023-09-01] MEDS: PATIENT OWN MEDICATION IH SCH ×2 (07:42→18:41)
[2023-09-01] MEDS: Coreg 3.125 MG PO SCH ×2 (08:10→22:01)
[2023-09-01] MEDS: Cordarone 200 MG PO SCH ×2 (08:10→22:01)
[2023-09-01] MEDS: Lasix 20 MG/2 ML IV SCH (08:10)
[2023-09-01] MEDS: ECOTRIN 81 MG PO SCH (08:10)
[2023-09-01] MEDS: Zestril 20 MG PO SCH ×2 (08:10→22:01)
[2023-09-01] MEDS ORDERED: Klor Con PO ONE (08:15)
[2023-09-01] MEDS: CORTISONE 1% CREAM TP SCH ×2 (09:22→22:06)
[2023-09-01] MEDS: ROCEPHIN 1 Gm-D5w 50 ml Bag** 1 G/50 ML IVPB IV SCH (09:22)
[2023-09-01] MEDS: Zithromax 500 MG/ 250 ML NaCl Premix 500 MG/250 ML IVPB IV SCH (09:22)
[2023-09-01] MEDS ORDERED: Zestril 20 MG PO SCH (10:00)
--- NOTE | 2023-09-01 10:30 | PCM.NOTE ---
Date and Time: 09/01/23 1025 Subjective Assessment: 08/30/23 is a 53 year old male with a PMHX of HTN, CAD, [place] (2017), cardiomyopathy, morbid obesity, and sleep apnea. He was sent to ER from clinic secondary to low potassium level of 2.9 that was drawn at 11 AM. Patient also has had complaints of increasing shortness of breath over the last 2 weeks. He was told in [address] Oscar Brice, cardiology, that he had an arrhythmia issue. He is not on any medication for this. He has not seen cardiology since 2018. He is only taking aspirin and lisinopril with HCTZ per his report. Patient denies chest pain. He found found to be in atrial fibrillation in ER and started on a cardizem gtt. BP is stable. We are unable to consult cardiology or get an echo due to it being the weekend. Will trend troponins. He denies Abd. pain, N/V/D. He does explain that his PCP started him on doxycycline for a rash on BL arms and legs of unknown cause. He did not start this medication yet. 08/31/23 Pt sitting up in chair. HR has improved. He continues to be in a-fib with HR 80- 90's. Will stop Cardizem gtt and start Amiodarone 400mg BID. Restarted Li sinopril without the HCTZ since we have him on Lasix. + hypokalemia this am- replaced. SOB has improved since admission. He continues to have some non- pitting edema. Continues Lasix. Procal slightly elevated- will continue antibiotics. He denies CP, Abd. pain, N/V/D. 09/01/23 Pt resting in bed. HR and BP improved. Continues to be in a-fib but controlled. Potassium again low this morning and replaced. Statin added as LDL 109. Pt reports his bought him in water to drink yesterday and this morning his sodium is low. Asked that he cut back on the amount he is drinking. Kidney function is a bit worse this morning as well. Today he has +1 pitting edema BLLE. He has continued SOB. He denies CP, Abd. pain, N/V/D. - Review of Systems Constitutional: No Fever, No Chills Eyes: No Symptoms Ears, Nose, & Throat: No Symptoms Respiratory: Short Of Breath (with walking), No Cough Cardiac: Edema, Orthopnea, No Chest Pain, No Syncope Abdominal/Gastrointestinal: No Abdominal Pain, No Nausea, No Vomiting, No Diarrhea Genitourinary Symptoms: No Dysuria Musculoskeletal: No Back Pain, No Neck Pain Skin: No Rash Neurological: No Dizziness, No Focal Weakness, No Sensory Changes Psychological: No Symptoms Endocrine: No Symptoms Hematologic/Lymphatic: No Symptoms Immunological/Allergic: No Symptoms Objective Exam General Appearance: no apparent distress, alert, obese Neurologic Exam: alert, oriented x 3, cooperative, normal mood/affect, nml cerebellar function, sensation nml, No motor deficits Skin Exam: normal color, warm, dry Eye Exam: PERRL, EOMI, eyes nml inspection Ears, Nose, Throat Exam: normal ENT inspection, pharynx normal, moist mucous membranes Neck Exam: normal inspection, non-tender, supple, full range of motion Respiratory Exam: normal breath sounds, lungs clear, No respiratory distress Cardiovascular Exam: normal heart sounds, irregular, edema (+1 pitting BLLE) Gastrointestinal/Abdomen Exam: soft, No tenderness, No mass Extremity Exam: normal inspection, normal range of motion Back Exam: normal inspection, normal range of motion, No CVA tenderness, No vertebral tenderness Male Genitalia Exam: deferred Rectal Exam: deferred OBJECTIVE DATA Vital Signs: Vital Signs - 24 hr Temp Pulse Resp BP Pulse Ox 09/01/23 07:45 62 17 93 L 09/01/23 07:34 85 09/01/23 07:06 97.0 F 77 18 115/72 97 09/01/23 05:30 73 09/01/23 04:00 97.6 F 73 18 116/86 98 09/01/23 00:01 100 H 09/01/23 00:00 97.8 F 98 H 20 125/84 97 08/31/23 20:00 98.1 F 96 H 24 130/80 97 08/31/23 19:39 72 20 96 08/31/23 15:52 97.0 F 90 20 121/83 95 08/31/23 12:00 97 F 78 18 152/89 96 08/31/23 11:24 79 Pain Assessment - Last Documented Pain Intensity 0 Intake and Output: Intake & Output 08/29/23 08/30/23 08/31/23 09/01/23 11:59 11:59 11:59 11:59 Intake Total 1501 1240 Output Total 1825 1085 Balance -324 155 Weight 200.5 kg 202.2 kg Lab Results: Lab Results-Last 24 Hours 08/31/23 09/01/23 09/01/23 Range/Units 17:20 05:22 05:22 WBC 10.1 (4.0-10.5) x10^3/uL RBC 4.23 (4.1-5.6) x10^6/uL Hgb 12.3 L (12.5-18.0) g/dL Hct 39.0 L (42-50) % MCV 92.2 (78-100) fL MCH 29.1 (26-32) pg MCHC 31.5 L (32-36) g/dL RDW 15.6 H (11.5-14.0) % Plt Count 217 (150-450) x10^3/uL MPV 10.2 (7.5-11.0) fL Sodium 134 L 132 L (137-145) mmol/L Potassium 3.6 3.1 L (3.5-5.1) mmol/L Chloride 99 98 (98-107) mmol/L Carbon Dioxide 27 25 (22-30) mmol/L Anion Gap 11.5 12.1 (5-15) MEQ/L BUN 30 H (9-20) mg/dL Creatinine 1.30 H (0.66-1.25) mg/dL Estimated GFR > 60.0 ML/MIN Glucose 94 (74-106) mg/dL Calcium 8.2 L (8.4-10.2) mg/dL Magnesium 1.8 (1.6-2.3) mg/dL Total Bilirubin 1.00 (0.2-1.3) mg/dL AST 71 H (17-59) U/L ALT 56 H (0-50) U/L Alkaline Phosphatase 73 (38-126) U/L Serum Total Protein 6.3 (6.3-8.2) g/dL Albumin 3.6 (3.5-5.0) g/dL Radiology Exams: Radiology Procedures Category Date Time Status CHEST WITH CONTRAST [CT] Stat Exams 08/30/23 14:24 Completed ECHO W/2D AND DOPPLER [US] Routine Exams 09/02/23 08:00 Ordered ECHO W/2D AND DOPPLER [US] Routine Exams 09/02/23 08:00 Stop Req Assessment/Plan (1) Atrial fibrillation with RVR Current Visit: Yes Status: Acute Assessment & Plan: - tele - Keep K+ >4 and Mg+ > 2 - TSH, - CBC, CMP daily- CMP pending - Lipid panel in AM - Trend trop - 1st Trop elevated at 0.140 - Echo- will have to wait until Saturday - cardiology consult- will have to wait until Saturday - Continue ASA - coreg 3.125 BID - Therapeutic Lovenox - Cardizem IV push and gtt started in ER - 10/06- Nuc med cardiac stress test: Impression: 1. Left ventricular hypertrophy. 2. Small focus infarct apical inferior wall. 3. No scintigraphic evidence for exercise induced reversible ischemia. 4. Low ejection fraction 44%. 08/31 - Continued A-fib with controlled rhythm 80's-90's -Stop cardizem gtt -Start amiodarone 400mg BID 09/01 -Continued a-fib controlled - BP stable - continue Lasix 20 mg daily Code(s): I48.91 - UNSPECIFIED ATRIAL FIBRILLATION (2) Elevated troponin Current Visit: Yes Status: Acute Assessment & Plan: - trend trop elevated- 0.140, 0.134, 0.124- trended down - cardiology consult- not able to contact until Saturday Code(s): R79.89 - OTHER SPECIFIED ABNORMAL FINDINGS OF BLOOD CHEMISTRY (3) Hypokalemia Current Visit: Yes Status: Acute Assessment & Plan: - replaced in ER - recheck in AM 08/31 -K+ 3.3- replaced 09/01 - K+ 3.1 replaced - potassium replacement daily added for now. D/c if no longer needed. Code(s): E87.6 - HYPOKALEMIA (4) Shortness of breath Current Visit: Yes Status: Acute Assessment & Plan: 2:2 A-fib RVR, CHF, pneumonia - Room air 95% - D-dimer 3.91- CT negative for PE - CT chest 08/30 Impression: 1. Pulmonary embolus evaluation limited by respiration artifact. No central pulmonary was. 2. Cardiomegaly without diane CHF. 3. Posterior right lung base groundglass opacities with small effusion. Rule out pneumonia. 4. Chronic findings including fatty liver, degenerative spondylosis, and old granulomatous disease. - Rocephin gave in ER for possible pneumonia - One time dose of Lasix gave in ER - Procal pending - Continue antibiotics for pneumonia coverage until procal is back. 08/31 - Procal elevated- continue antibiotics - Continue Lasix 09/01 - Continued SOB Code(s): R06.02 - SHORTNESS OF BREATH (5) Hypertension Current Visit: No Status: Acute Assessment & Plan: - stable - Continue Lisinopril without HCTZ - Started Coreg 09/01 - BP stable and improved Code(s): I10 - ESSENTIAL (PRIMARY) HYPERTENSION (6) Sleep apnea Current Visit: Yes Status: Acute Assessment & Plan: - Continue CPAP at night. - May use home CPAP Code(s): G47.30 - SLEEP APNEA, UNSPECIFIED (7) Cardiomegaly Current Visit: Yes Status: Acute Assessment & Plan: - as seen on CT - echo for further eval- will have to wait until Saturday Code(s): I51.7 - CARDIOMEGALY (8) CHF (congestive heart failure) Current Visit: Yes Status: Acute Assessment & Plan: - BNP 2660- on admission - Lasix started in ER- continue - Coreg, ASA - Room air - Non-pitting edema 09/01 - +1 pitting edema BLLE - Increased SOb - May be related to increase water intake last night- advised to decrease intake. 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 1.30 - R/t CHF, LASIX - trend labs Code(s): N17.9 - ACUTE KIDNEY FAILURE, UNSPECIFIED (14) Hyperlipidemia LDL goal <70 Current Visit: Yes Status: Acute Assessment & Plan: 09/01 - start statin Code(s): E78.5 - HYPERLIPIDEMIA, UNSPECIFIED (15) Smoker Current Visit: Yes Status: Acute Assessment & Plan: - advised cessation - nicotine patch VTE: Lovenox Code status: Full Next of Kin: D/C plan: 1-2 days Code(s): F17.200 - NICOTINE DEPENDENCE, UNSPECIFIED, UNCOMPLICATED
[2023-09-01] MEDS ORDERED: MAG-OX 400 PO ONE (11:03)
[2023-09-01] MEDS ORDERED: xanAX 0.5 MG PO ONE (11:35)
[2023-09-01] MEDS ORDERED: BENADRYL 50 MG/ML IV ONE (11:49)
[2023-09-01 12:54] LABS: TROPONIN 0.069 ng/mL (0.000-0.034)
[2023-09-01] MEDS: Nicoderm CQ 21 MG TOP SCH (17:27)
[2023-09-01] MEDS: ZOCOR 20MG PO SCH (22:01)
[2023-09-02 04:41] LABS: Hematocrit 38.2 % (42-50); Hemoglobin 12.2 g/dL (12.5-18.0); Mean Cell Volume 90.5 fL (78-100); Mean Corpuscular Hemoglobin 28.9 pg (26-32); Mean Corpuscular Hgb Concent. 31.9 g/dL (32-36); Mean Platelet Volume 10.4 fL (7.5-11.0); Platelet Count 237 x10^3/uL (150-450); Red Blood Count 4.22 x10^6/uL (4.1-5.6); Red Cell Distribution Width 15.5 % (11.5-14.0); White Blood Count 11.7 x10^3/uL (4.0-10.5)
[2023-09-02 04:58] LABS: ALBUMIN 3.7 g/dL (3.5-5.0); ANION GAP 11.2 MEQ/L (5-15); BILIRUBIN,TOTAL 0.7 mg/dL (0.2-1.3); Calcium 8.2 mg/dL (8.4-10.2); Creatinine 1 1.37 mg/dL (0.66-1.25); EST GLOMERULAR FILTRATION RATE 57.8 ML/MIN; Potassium 3.4 mmol/L (3.5-5.1); Total Protein 6.5 g/dL (6.3-8.2)
--- NOTE | 2023-09-02 05:43 | PCM.NOTE ---
Date and Time: 09/02/23 0536 Subjective Assessment: is a 53 year old male with a PMHX of HTN, CAD, [place] (2017), cardiomyopathy, CHF, morbid obesity, and sleep apnea. He was sent to ER from clinic secondary to low potassium level of 2.9 that was drawn at 11 AM. Patient also has had complaints of increasing shortness of breath over the last 2 weeks. Patient admitted for AFIB/pneumonia/hypokalemia. During hospitalization patient was treated initially with a cardizem drip, continues to be in AFIB with HR 80- 90's, now on amiodarone 400mg BID. He was being treated with rocephin for his pneumonia, this will be d/cd today. CHF appears to be in exacerbation with BNP at 2660 and continued pitting edema which is improving with lasix IV. Coreg/ASA/Statin started. Shortness of breath has increased. Previous Stress stess test in 2019 showing EF of 44%, LVH, and small focus infarct apical inferior wall. Patient still hypokalemic, being treated with supplementation. Lisinopril has been continued for his BP without HCTZ. Plan is for cardiology tele-visit today,AFIB/trop uptrending. Denies chest pain. Endorses improvement in SOB however, still sob with exertion. Lungs clear on auscultation. BLE edema/ pedal edema, still at 3+. Denies fever,cough, cp, abdominal pain, LOYA, dizziness, N/V/D. 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 Breath (with exertion / uses CPAP at night RA during day) Cardiac: Edema Abdominal/Gastrointestinal: No Symptoms Genitourinary Symptoms: No Symptoms Musculoskeletal: No Symptoms Skin: Rash (BLE, BUE, right back, improved since admission, not loner pruritic ) Neurological: No Symptoms Psychological: No Symptoms Endocrine: No Symptoms Hematologic/Lymphatic: No Symptoms Immunological/Allergic: No Symptoms Objective Exam General Appearance: no apparent distress Neurologic Exam: alert, oriented x 3, cooperative Skin Exam: normal color Eye Exam: PERRL Neck Exam: normal inspection Respiratory Exam: normal breath sounds, lungs clear Cardiovascular Exam: irregular (Tele AFIB HR 82) Gastrointestinal/Abdomen Exam: soft, normal bowel sounds Extremity Exam: pedal edema, swelling Back Exam: normal inspection Male Genitalia Exam: deferred Rectal Exam: deferred OBJECTIVE DATA Vital Signs: Vital Signs - 24 hr Temp Pulse Resp BP Pulse Ox 09/02/23 04:00 81 15 128/80 94 L 09/02/23 00:00 97.8 F 89 20 131/86 93 L 09/01/23 19:54 97.9 F 76 19 136/92 94 L 09/01/23 18:39 96 09/01/23 18:38 47 L 18 96 09/01/23 16:00 97.1 F 86 18 127/81 95 09/01/23 11:37 98.6 F 97 H 19 109/52 96 09/01/23 07:45 62 17 93 L 09/01/23 07:34 85 09/01/23 07:06 97.0 F 77 18 115/72 97 Pain Assessment - Last Documented Pain Intensity 0 Intake and Output: Intake & Output 08/30/23 08/31/23 09/01/23 09/02/23 11:59 11:59 11:59 11:59 Intake Total 1501 1240 960 Output Total 1825 1085 500 Balance -324 155 460 Weight 200.5 kg 202.2 kg Lab Results: Lab Results-Last 24 Hours 09/01/23 09/01/23 09/01/23 Range/Units 05:22 05:22 11:41 WBC 10.1 (4.0-10.5) x10^3/uL RBC 4.23 (4.1-5.6) x10^6/uL Hgb 12.3 L (12.5-18.0) g/dL Hct 39.0 L (42-50) % MCV 92.2 (78-100) fL MCH 29.1 (26-32) pg MCHC 31.5 L (32-36) g/dL RDW 15.6 H (11.5-14.0) % Plt Count 217 (150-450) x10^3/uL MPV 10.2 (7.5-11.0) fL D-Dimer (0.0-0.50) mg/L Sodium 132 L (137-145) mmol/L Potassium 3.1 L (3.5-5.1) mmol/L Chloride 98 (98-107) mmol/L Carbon Dioxide 25 (22-30) mmol/L Anion Gap 12.1 (5-15) MEQ/L BUN 30 H (9-20) mg/dL Creatinine 1.30 H (0.66-1.25) mg/dL Estimated GFR > 60.0 ML/MIN Glucose 94 (74-106) mg/dL POC Glucometer 151 H (74 to 106) mg/dL Calcium 8.2 L (8.4-10.2) mg/dL Magnesium 1.8 (1.6-2.3) mg/dL Total Bilirubin 1.00 (0.2-1.3) mg/dL AST 71 H (17-59) U/L ALT 56 H (0-50) U/L Alkaline Phosphatase 73 (38-126) U/L Troponin I (0.000-0.034) ng/mL NT-Pro-B Natriuret Pep (<300) pg/mL Serum Total Protein 6.3 (6.3-8.2) g/dL Albumin 3.6 (3.5-5.0) g/dL 09/01/23 09/01/23 09/01/23 Range/Units 12:07 12:07 14:45 WBC (4.0-10.5) x10^3/uL RBC (4.1-5.6) x10^6/uL Hgb (12.5-18.0) g/dL Hct (42-50) % MCV (78-100) fL MCH (26-32) pg MCHC (32-36) g/dL RDW (11.5-14.0) % Plt Count (150-450) x10^3/uL MPV (7.5-11.0) fL D-Dimer 0.76 H* (0.0-0.50) mg/L Sodium (137-145) mmol/L Potassium (3.5-5.1) mmol/L Chloride (98-107) mmol/L Carbon Dioxide (22-30) mmol/L Anion Gap (5-15) MEQ/L BUN (9-20) mg/dL Creatinine (0.66-1.25) mg/dL Estimated GFR ML/MIN Glucose (74-106) mg/dL POC Glucometer (74 to 106) mg/dL Calcium (8.4-10.2) mg/dL Magnesium (1.6-2.3) mg/dL Total Bilirubin (0.2-1.3) mg/dL AST (17-59) U/L ALT (0-50) U/L Alkaline Phosphatase (38-126) U/L Troponin I 0.069 H* 0.095 H* (0.000-0.034) ng/mL NT-Pro-B Natriuret Pep 3080 (<300) pg/mL Serum Total Protein (6.3-8.2) g/dL Albumin (3.5-5.0) g/dL 09/01/23 09/01/23 09/02/23 Range/Units 17:45 20:48 04:36 WBC 11.7 H (4.0-10.5) x10^3/uL RBC 4.22 (4.1-5.6) x10^6/uL Hgb 12.2 L (12.5-18.0) g/dL Hct 38.2 L (42-50) % MCV 90.5 (78-100) fL MCH 28.9 (26-32) pg MCHC 31.9 L (32-36) g/dL RDW 15.5 H (11.5-14.0) % Plt Count 237 (150-450) x10^3/uL MPV 10.4 (7.5-11.0) fL D-Dimer (0.0-0.50) mg/L Sodium (137-145) mmol/L Potassium (3.5-5.1) mmol/L Chloride (98-107) mmol/L Carbon Dioxide (22-30) mmol/L Anion Gap (5-15) MEQ/L BUN (9-20) mg/dL Creatinine (0.66-1.25) mg/dL Estimated GFR ML/MIN Glucose (74-106) mg/dL POC Glucometer (74 to 106) mg/dL Calcium (8.4-10.2) mg/dL Magnesium (1.6-2.3) mg/dL Total Bilirubin (0.2-1.3) mg/dL AST (17-59) U/L ALT (0-50) U/L Alkaline Phosphatase (38-126) U/L Troponin I 0.146 H* 0.185 H* (0.000-0.034) ng/mL NT-Pro-B Natriuret Pep (<300) pg/mL Serum Total Protein (6.3-8.2) g/dL Albumin (3.5-5.0) g/dL 09/02/23 09/02/23 Range/Units 04:36 04:36 WBC (4.0-10.5) x10^3/uL RBC (4.1-5.6) x10^6/uL Hgb (12.5-18.0) g/dL Hct (42-50) % MCV (78-100) fL MCH (26-32) pg MCHC (32-36) g/dL RDW (11.5-14.0) % Plt Count (150-450) x10^3/uL MPV (7.5-11.0) fL D-Dimer (0.0-0.50) mg/L Sodium 131 L (137-145) mmol/L Potassium 3.4 L (3.5-5.1) mmol/L Chloride 98 (98-107) mmol/L Carbon Dioxide 26 (22-30) mmol/L Anion Gap 11.2 (5-15) MEQ/L BUN 34 H (9-20) mg/dL Creatinine 1.37 H (0.66-1.25) mg/dL Estimated GFR 57.8 ML/MIN Glucose 98 (74-106) mg/dL POC Glucometer (74 to 106) mg/dL Calcium 8.2 L (8.4-10.2) mg/dL Magnesium 1.9 (1.6-2.3) mg/dL Total Bilirubin 0.70 (0.2-1.3) mg/dL AST 67 H (17-59) U/L ALT 63 H (0-50) U/L Alkaline Phosphatase 75 (38-126) U/L Troponin I (0.000-0.034) ng/mL NT-Pro-B Natriuret Pep (<300) pg/mL Serum Total Protein 6.5 (6.3-8.2) g/dL Albumin 3.7 (3.5-5.0) g/dL Radiology Exams: Radiology Procedures Category Date Time Status ECHO W/2D AND DOPPLER [US] Routine Exams 09/02/23 08:00 Ordered ECHO W/2D AND DOPPLER [US] Routine Exams 09/02/23 08:00 Stop Req Assessment/Plan (1) Atrial fibrillation with RVR Current Visit: Yes Status: Acute Assessment & Plan: - tele - Keep K+ >4 and Mg+ > 2 - TSH, - CBC, CMP daily- CMP pending - Lipid panel in AM - Trend trop - 1st Trop elevated at 0.140 - Echo- will have to wait until Saturday - cardiology consult- will have to wait until Saturday - Continue ASA - coreg 3.125 BID - Therapeutic Lovenox - Cardizem IV push and gtt started in ER - 10/06- Nuc med cardiac stress test: Impression: 1. Left ventricular hypertrophy. 2. Small focus infarct apical inferior wall. 3. No scintigraphic evidence for exercise induced reversible ischemia. 4. Low ejection fraction 44%. 08/31 - Continued A-fib with controlled rhythm 80's-90's -Stop cardizem gtt -Start amiodarone 400mg BID 09/01 -Continued a-fib controlled - BP stable - continue Lasix 20 mg daily 09/02: -Cardiology consult pending, Bipin unavailable, Sherri will see pt -BP remains stable, continue lisinopril -Still edematous, continue lasix with K+ supplementation -Echo pending Code(s): I48.91 - UNSPECIFIED ATRIAL FIBRILLATION (2) Elevated troponin Current Visit: Yes Status: Acute Assessment & Plan: - trend trop elevated- 0.140, 0.134, 0.124- trended down - cardiology consult- not able to contact until Sunday 09/02: Trops now uptrended 0.185>0.146>0.095 -Cards consult pending Code(s): R79.89 - OTHER SPECIFIED ABNORMAL FINDINGS OF BLOOD CHEMISTRY (3) Hypokalemia Current Visit: Yes Status: Acute Assessment & Plan: - replaced in ER - recheck in AM 08/31 -K+ 3.3- replaced 09/01 - K+ 3.1 replaced - potassium replacement daily added for now. D/c if no longer needed. Code(s): E87.6 - HYPOKALEMIA (4) NILAM (acute kidney injury) Current Visit: Yes Status: Acute Assessment & Plan: 09/01/23 - Creat. 1.30 - R/t CHF, LASIX - trend labs 09/02: -D/C lisinopril, Avoid BECKI/ARBS, NSAIDS, continue to monitor renal/lytes daily Code(s): N17.9 - ACUTE KIDNEY FAILURE, UNSPECIFIED (5) Pneumonia Current Visit: Yes Status: Acute Assessment & Plan: - as seen on CT - Procal elevated - Rocephin and azithromycin 09/01 - WBC WNL 09/02: -RA -WBC WNL d/c rocephin Code(s): J18.9 - PNEUMONIA, UNSPECIFIED ORGANISM (6) Hyponatremia Current Visit: Yes Status: Acute Assessment & Plan: 09/01 - Mild 132- trend - possibly r/t increase water intake last night - advised to decrease water intake Code(s): E87.1 - HYPO-OSMOLALITY AND HYPONATREMIA (7) CHF (congestive heart failure) Current Visit: Yes Status: Acute Assessment & Plan: - BNP 2660- on admission - Lasix started in ER- continue - Coreg, ASA - Room air - Non-pitting edema 09/01 - +1 pitting edema BLLE - Increased SOb - May be related to increase water intake last night- advised to decrease intake. Code(s): I50.9 - HEART FAILURE, UNSPECIFIED (8) Hyperlipidemia LDL goal <70 Current Visit: Yes Status: Acute Assessment & Plan: 09/01 - start statin Code(s): E78.5 - HYPERLIPIDEMIA, UNSPECIFIED (9) Cardiomegaly Current Visit: Yes Status: Acute Assessment & Plan: - as seen on CT - echo for further eval- will have to wait until Saturday Code(s): I51.7 - CARDIOMEGALY (10) Obesity, morbid, BMI 40.0-49.9 Current Visit: Yes Status: Acute Assessment & Plan: - advised diet control Code(s): E66.01 - MORBID (SEVERE) OBESITY DUE TO EXCESS CALORIES (11) Rash Current Visit: Yes Status: Acute Assessment & Plan: - 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 Pulmonary embolus evaluation limited by respiration artifact. No central pulmonary was. 2. Cardiomegaly without diane CHF. 3. Posterior right lung base groundglass opacities with small effusion. Rule out pneumonia. 4. Chronic findings including fatty liver, degenerative spondylosis, and old granulomatous disease. - Rocephin gave in ER for possible pneumonia - One time dose of Lasix gave in ER - Procal pending - Continue antibiotics for pneumonia coverage until procal is back. 08/31 - Procal elevated- continue antibiotics - Continue Lasix 09/01 - Continued SOB Code(s): R06.02 - SHORTNESS OF BREATH (13) Sleep apnea Current Visit: Yes Status: Acute Assessment & Plan: - Continue CPAP at night. - May use home CPAP Code(s): G47.30 - SLEEP APNEA, UNSPECIFIED (14) Smoker Current Visit: Yes Status: Acute Assessment & Plan: - advised cessation - nicotine patch Code(s): F17.200 - NICOTINE DEPENDENCE, UNSPECIFIED, UNCOMPLICATED (15) Hypertension Current Visit: No Status: Acute Assessment & Plan: - stable - Continue Lisinopril without HCTZ - Started Coreg 09/01 - BP stable and improved 09/02: -d/c lisinopril due to NILAM, increased Coreg VTE: Lovenox Code status: Full Next of Kin: D/C plan: 1-2 days Code(s): I10 - ESSENTIAL (PRIMARY) HYPERTENSION
[2023-09-02] MEDS: ENOXAPARIN SODIUM SQ SCH ×2 (06:43→17:42)
[2023-09-02] MEDS: Zestril 20 MG PO SCH (09:33)
[2023-09-02] MEDS: Cordarone 200 MG PO SCH ×2 (09:33→21:05)
[2023-09-02] MEDS: Lasix 20 MG/2 ML IV SCH (09:33)
[2023-09-02] MEDS: ROCEPHIN 1 Gm-D5w 50 ml Bag** 1 G/50 ML IVPB IV SCH (09:34)
[2023-09-02] MEDS: Klor Con PO SCH ×2 (09:34→21:05)
[2023-09-02] MEDS: Coreg 3.125 MG PO SCH (09:34)
[2023-09-02] MEDS: ECOTRIN 81 MG PO SCH (09:34)
[2023-09-02] MEDS: CORTISONE 1% CREAM TP SCH ×2 (10:05→23:43)
[2023-09-02] MEDS: PATIENT OWN MEDICATION IH SCH ×2 (11:09→18:25)
[2023-09-02] MEDS: Mylicon 80MG PO PRN (14:13)
[2023-09-02] MEDS: Nicoderm CQ 21 MG TOP SCH (17:56)
[2023-09-02] MEDS: Coreg PO SCH (21:05)
[2023-09-02] MEDS: ZOCOR 20MG PO SCH (21:05)
--- NOTE | 2023-09-03 04:53 | PCM.NOTE ---
Date and Time: 09/03/23 0447 Subjective Assessment: is a 53 year old male with a PMHX of HTN, CAD, [place] (2017), cardiomyopathy, CHF, morbid obesity, and sleep apnea. He was sent to ER from clinic secondary to low potassium level of 2.9 that was drawn at 11 AM. Patient also has had complaints of increasing shortness of breath over the last 2 weeks. Patient admitted for AFIB/pneumonia/hypokalemia. During hospitalization patient was treated initially with a cardizem drip, continues to be in AFIB with HR 80- 90's, now on amiodarone 400mg BID. He was being treated with rocephin for his pneumonia, this will be d/cd today. CHF appears to be in exacerbation with BNP at 2660 and continued pitting edema which is improving with lasix IV. Coreg/ASA/Statin started. Shortness of breath has increased. Previous Stress stess test in 2019 showing EF of 44%, LVH, and small focus infarct apical inferior wall. Patient still hypokalemic, being treated with supplementation. Lisinopril has been discontinued due to worsening kidney function. Coreg has been increased. Tele-Cardio with Dr. Wheeler 09/02 with recs for OBJECTIVE DATA Vital Signs: Vital Signs - 24 hr Temp Pulse Resp BP Pulse Ox 09/03/23 03:40 96.9 F 80 18 113/80 93 L 09/02/23 22:47 96.9 F 80 18 113/80 93 L 09/02/23 19:13 96.5 F 86 18 124/62 95 09/02/23 18:25 80 18 98 09/02/23 15:10 84 90/59 09/02/23 11:59 97.2 F 79 18 109/70 94 L 09/02/23 10:00 88 18 93 L 09/02/23 07:48 93 L 09/02/23 07:27 82 124/73 09/02/23 06:51 97.0 F 94 H 18 99 Pain Assessment - Last Documented Pain Intensity 0 Intake and Output: Intake & Output 08/31/23 09/01/23 09/02/23 09/03/23 11:59 11:59 11:59 11:59 Intake Total 1501 1240 960 240 Output Total 1825 1085 500 Balance -324 155 460 240 Weight 200.5 kg 202.2 kg 202.5 kg Lab Results: Lab Results-Last 24 Hours 09/02/23 09/02/23 09/02/23 Range/Units 04:36 04:36 04:36 WBC 11.7 H (4.0-10.5) x10^3/uL RBC 4.22 (4.1-5.6) x10^6/uL Hgb 12.2 L (12.5-18.0) g/dL Hct 38.2 L (42-50) % MCV 90.5 (78-100) fL MCH 28.9 (26-32) pg MCHC 31.9 L (32-36) g/dL RDW 15.5 H (11.5-14.0) % Plt Count 237 (150-450) x10^3/uL MPV 10.4 (7.5-11.0) fL Sodium 131 L (137-145) mmol/L Potassium 3.4 L (3.5-5.1) mmol/L Chloride 98 (98-107) mmol/L Carbon Dioxide 26 (22-30) mmol/L Anion Gap 11.2 (5-15) MEQ/L BUN 34 H (9-20) mg/dL Creatinine 1.37 H (0.66-1.25) mg/dL Estimated GFR 57.8 ML/MIN Glucose 98 (74-106) mg/dL Calcium 8.2 L (8.4-10.2) mg/dL Magnesium 1.9 (1.6-2.3) mg/dL Total Bilirubin 0.70 (0.2-1.3) mg/dL AST 67 H (17-59) U/L ALT 63 H (0-50) U/L Alkaline Phosphatase 75 (38-126) U/L Serum Total Protein 6.5 (6.3-8.2) g/dL Albumin 3.7 (3.5-5.0) g/dL Radiology Exams: Radiology Procedures Category Date Time Status ECHO W/2D AND DOPPLER [US] Routine Exams 09/02/23 08:00 Taken Multi-Disciplinary Progress Notes: Multi-Disciplinary Progress Notes 09/02/23 08:33 Case Management Note by Jessie Ge S/W PATIENT ABOUT COST OF ECHO APPROX $1,899 AND HIS STATUS OF SELF PAY AND HE IS STILL AGREEABLE TO HAVING TEST DONE. WILL HAVE FINANCIAL SERVICES SPEAK WITH PATIENT. Initialized on 09/02/23 08:33 - END OF NOTE Assessment/Plan (1) Atrial fibrillation with RVR Current Visit: Yes Status: Acute Assessment & Plan: - tele - Keep K+ >4 and Mg+ > 2 - TSH, - CBC, CMP daily- CMP pending - Lipid panel in AM - Trend trop - 1st Trop elevated at 0.140 - Echo- will have to wait until Saturday - cardiology consult- will have to wait until Saturday - Continue ASA - coreg 3.125 BID - Therapeutic Lovenox - Cardizem IV push and gtt started in ER - 10/06- Nuc med cardiac stress test: Impression: 1. Left ventricular hypertrophy. 2. Small focus infarct apical inferior wall. 3. No scintigraphic evidence for exercise induced reversible ischemia. 4. Low ejection fraction 44%. 08/31 - Continued A-fib with controlled rhythm 80's-90's -Stop cardizem gtt -Start amiodarone 400mg BID 09/01 -Continued a-fib controlled - BP stable - continue Lasix 20 mg daily 09/02: -Cardiology consult pending, Bipin unavailable, Sherri will see pt -BP remains stable, continue lisinopril -Still edematous, continue lasix with K+ supplementation -Echo pending Code(s): I48.91 - UNSPECIFIED ATRIAL FIBRILLATION Code(s): I48.91 - UNSPECIFIED ATRIAL FIBRILLATION (2) Elevated troponin Current Visit: Yes Status: Acute Assessment & Plan: - trend trop elevated- 0.140, 0.134, 0.124- trended down - cardiology consult- not able to contact until Sunday 09/02: Trops now uptrended 0.185>0.146>0.095 -Cards consult pending Code(s): R79.89 - OTHER SPECIFIED ABNORMAL FINDINGS OF BLOOD CHEMISTRY (3) Hypokalemia Current Visit: Yes Status: Acute Assessment & Plan: - replaced in ER - recheck in AM 08/31 -K+ 3.3- replaced 09/01 - K+ 3.1 replaced - potassium replacement daily added for now. D/c if no longer needed. Code(s): E87.6 - HYPOKALEMIA (4) NILAM (acute kidney injury) Current Visit: Yes Status: Acute Assessment & Plan: 09/01/23 - Creat. 1.30 - R/t CHF, LASIX - trend labs 09/02: -D/C lisinopril, Avoid BECKI/ARBS, NSAIDS, continue to monitor renal/lytes daily Code(s): N17.9 - ACUTE KIDNEY FAILURE, UNSPECIFIED (5) Pneumonia Current Visit: Yes Status: Acute Assessment & Plan: - as seen on CT - Procal elevated - Rocephin and azithromycin 09/01 - WBC WNL 09/02: -RA -WBC WNL d/c rocephin Code(s): J18.9 - PNEUMONIA, UNSPECIFIED ORGANISM (6) Hyponatremia Current Visit: Yes Status: Acute Assessment & Plan: 09/01 - Mild 132- trend - possibly r/t increase water intake last night - advised to decrease water intake Code(s): E87.1 - HYPO-OSMOLALITY AND HYPONATREMIA (7) CHF (congestive heart failure) Current Visit: Yes Status: Acute Assessment & Plan: - BNP 2660- on admission - Lasix started in ER- continue - Coreg, ASA - Room air - Non-pitting edema 09/01 - +1 pitting edema BLLE - Increased SOb - May be related to increase water intake last night- advised to decrease intake. Code(s): I50.9 - HEART FAILURE, UNSPECIFIED (8) Hyperlipidemia LDL goal <70 Current Visit: Yes Status: Acute Assessment & Plan: 09/01 - start statin Code(s): E78.5 - HYPERLIPIDEMIA, UNSPECIFIED (9) Cardiomegaly Current Visit: Yes Status: Acute Assessment & Plan: - as seen on CT - echo for further eval- will have to wait until Saturday Code(s): I51.7 - CARDIOMEGALY (10) Obesity, morbid, BMI 40.0-49.9 Current Visit: Yes Status: Acute Assessment & Plan: - advised diet control Code(s): E66.01 - MORBID (SEVERE) OBESITY DUE TO EXCESS CALORIES (11) Rash Current Visit: Yes Status: Acute Assessment & Plan: - 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 Pulmonary embolus evaluation limited by respiration artifact. No central pulmonary was. 2. Cardiomegaly without diane CHF. 3. Posterior right lung base groundglass opacities with small effusion. Rule out pneumonia. 4. Chronic findings including fatty liver, degenerative spondylosis, and old granulomatous disease. - Rocephin gave in ER for possible pneumonia - One time dose of Lasix gave in ER - Procal pending - Continue antibiotics for pneumonia coverage until procal is back. 08/31 - Procal elevated- continue antibiotics - Continue Lasix 09/01 - Continued SOB Code(s): R06.02 - SHORTNESS OF BREATH (13) Sleep apnea Current Visit: Yes Status: Acute Assessment & Plan: - Continue CPAP at night. - May use home CPAP Code(s): G47.30 - SLEEP APNEA, UNSPECIFIED (14) Smoker Current Visit: Yes Status: Acute Assessment & Plan: - advised cessation - nicotine patch Code(s): F17.200 - NICOTINE DEPENDENCE, UNSPECIFIED, UNCOMPLICATED (15) Hypertension Current Visit: No Status: Acute Assessment & Plan: - stable - Continue Lisinopril without HCTZ - Started Coreg 09/01 - BP stable and improved 09/02: -d/c lisinopril due to NILAM, increased Coreg VTE: Lovenox Code status: Full Next of Kin: D/C plan: 1-2 days Code(s): I10 - ESSENTIAL (PRIMARY) HYPERTENSION
[2023-09-03] MEDS: ENOXAPARIN SODIUM SQ SCH (05:27)
[2023-09-03 06:45] LABS: Hematocrit 38.5 % (42-50); Hemoglobin 12.3 g/dL (12.5-18.0); Mean Cell Volume 90.8 fL (78-100); Mean Corpuscular Hgb Concent. 31.9 g/dL (32-36); Mean Platelet Volume 10.4 fL (7.5-11.0); Platelet Count 229 x10^3/uL (150-450); Red Blood Count 4.24 x10^6/uL (4.1-5.6); Red Cell Distribution Width 15.8 % (11.5-14.0); White Blood Count 11.4 x10^3/uL (4.0-10.5)
[2023-09-03] MEDS: PATIENT OWN MEDICATION IH SCH (06:50)
[2023-09-03] MEDS ORDERED: PATIENT OWN MEDICATION IH PRN (06:51)
[2023-09-03 06:59] VITALS: RESP 16; TEMP 97.9
[2023-09-03 07:00] LABS: ALBUMIN 3.6 g/dL (3.5-5.0); ALKALINE PHOSPHATASE 75 U/L (38-126); ANION GAP 10.9 MEQ/L (5-15); BLOOD UREA NITROGEN 30 mg/dL (9-20); CHLORIDE 100 mmol/L (98-107); Calcium 7.7 mg/dL (8.4-10.2); Carbon Dioxide 25 mmol/L (22-30); EST GLOMERULAR FILTRATION RATE > 60.0 ML/MIN; Glucose 106 mg/dL (74-106); Potassium 3.5 mmol/L (3.5-5.1); SGOT/AST 60 U/L (17-59); SGPT/ALT 64 U/L (0-50); SODIUM 132 mmol/L (137-145); Total Protein 6.4 g/dL (6.3-8.2)
[2023-09-03] MEDS: Cordarone 200 MG PO SCH (09:28)
[2023-09-03] MEDS: CORTISONE 1% CREAM TP SCH (09:28)
[2023-09-03] MEDS: ECOTRIN 81 MG PO SCH (09:28)
[2023-09-03] MEDS: Klor Con PO SCH (09:28)
[2023-09-03] MEDS: Coreg PO SCH (09:28)
--- NOTE | 2023-09-03 10:47 | ECHO ---
DATE OF PROCEDURE: 09/02/2023 CLINICAL INFORMATION: Atrial fibrillation associated with congestive heart failure. The M-mode 2D, and Doppler echocardiogram including color flow Doppler shows the left ventricle is mildly dilated. No thrombus is noted. There is moderate concentric left ventricular hypertrophy. There is severe left ventricular systolic dysfunction. The ejection fraction is estimated to be 10 to 15%. The right ventricle appears to be dilated. The left atrium is severely dilated. The interatrial septum is intact. The right atrium is dilated. The aortic valve is not well visualized. There is mitral valvular thickening. There is mild tricuspid regurgitation. There is mild tricuspid regurgitation. The right ventricular systolic pressure is calculated to be 2.5 mm of Mercury. The aortic root is normal in size. There is a small posterior pericardial effusion. IMPRESSION: 1) SEVERE LEFT VENTRICULAR SYSTOLIC DYSFUNCTION. 2) MILD LEFT VENTRICULAR DILATATION. 3) MODERATE CONCENTRIC LEFT VENTRICULAR HYPERTROPHY. 4) SEVERE LEFT ATRIAL DILATATION. 5) MILD MITRAL REGURGITATION. 6) MILD TRICUSPID REGURGITATION. 7) NORMAL RIGHT VENTRICULAR SYSTOLIC PRESSURE. 8) SMALL POSTERIOR PERICARDIAL EFFUSION.
[2023-09-03] MEDS: Lasix 20 MG/2 ML IV SCH (10:59)
[2023-09-03] MEDS: Mylicon 80MG PO PRN (11:40)
--- NOTE | 2023-09-03 11:43 | PCM.DS ---
Discharge Summary Date of Admission: 08/30/23 17:44 Date of Discharge: 09/03/23 Admitting Physician: DIXIE GARCIA MD Consults: Consults on Case 09/01/23 10:33 Cardiology Consult [Notify Sales Promotion Officer of Admit] ROUTINE Primary Care Provider: NO FAMILY DOCTOR Allergies Allergies azithromycin [From Zithromax] Allergy (Severe, Verified 09/01/23 12:09) Shortness of Breath facial numbness, dipheretic, restless, shortness of breath Hospital Summary - Hospital Course Hospital Course: is a 53 year old male with a PMHX of HTN, CAD, [place] (2017), cardiomyopathy, CHF, morbid obesity, and sleep apnea. He was sent to ER from clinic secondary to low potassium level of 2.9 that was drawn at 11 AM. Patient also has had complaints of increasing shortness of breath over the last 2 weeks. Patient admitted for AFIB/pneumonia/hypokalemia. During hospitalization patient was treated initially with a cardizem drip, continues to be in AFIB with HR 80- 90's, now on amiodarone 400mg BID. He was being treated with rocephin for his pneumonia, this will be d/cd today. CHF appears to be in exacerbation with BNP at 2660 and continued pitting edema which is improving with lasix IV. Coreg/ASA/Statin started. Cardiology consulted, recs to continue current management with follow up in one week. Echo pending read. Previous Stress test in 2019 showing EF of 44%, LVH, and small focus infarct apical inferior wall. Patient stable for discharge and cleared by Dr. Wheeler - cardiology. Patient advised to continue lasix 20mg daily, daily weights, if >3lbs weight gain, he is to add one extra lasix pill. He will also discharge on amiodarone and Eliquis 5mg po bid (which he will pickle cutter from [facility]). New Diagnosis:AFIB/pneumonia/hypokalemia New Medications: Eliquis, Coreg, ASA, Statin, lasix, amiodarone Follow Up: PCP/Cards w/in one week Results pending: ECHO final read Latest Assessment & Plan (1) Atrial fibrillation with RVR Current Visit: Yes Status: Acute Assessment & Plan: - tele - Keep K+ >4 and Mg+ > 2 - TSH, - CBC, CMP daily- CMP pending - Lipid panel in AM - Trend trop - 1st Trop elevated at 0.140 - Echo- will have to wait until Saturday - cardiology consult- will have to wait until Saturday - Continue ASA - coreg 3.125 BID - Therapeutic Lovenox - Cardizem IV push and gtt started in ER - 10/06- Nuc med cardiac stress test: Impression: 1. Left ventricular hypertrophy. 2. Small focus infarct apical inferior wall. 3. No scintigraphic evidence for exercise induced reversible ischemia. 4. Low ejection fraction 44%. 08/31 - Continued A-fib with controlled rhythm 80's-90's -Stop cardizem gtt -Start amiodarone 400mg BID 09/01 -Continued a-fib controlled - BP stable - continue Lasix 20 mg daily 09/02: -Cardiology consult pending, Bipin unavailable, Sherri will see pt -BP remains stable, continue lisinopril -Still edematous, continue lasix with K+ supplementation -Echo pending Code(s): I48.91 - UNSPECIFIED ATRIAL FIBRILLATION Code(s): I48.91 - UNSPECIFIED ATRIAL FIBRILLATION (2) Elevated troponin Current Visit: Yes Status: Acute Assessment & Plan: - trend trop elevated- 0.140, 0.134, 0.124- trended down - cardiology consult- not able to contact until Sunday 09/02: Trops now uptrended 0.185>0.146>0.095 -Cards consult pending Code(s): R79.89 - OTHER SPECIFIED ABNORMAL FINDINGS OF BLOOD CHEMISTRY (3) Hypokalemia Current Visit: Yes Status: Acute Assessment & Plan: - replaced in ER - recheck in AM 08/31 -K+ 3.3- replaced 09/01 - K+ 3.1 replaced - potassium replacement daily added for now. D/c if no longer needed. Code(s): E87.6 - HYPOKALEMIA (4) NILAM (acute kidney injury) Current Visit: Yes Status: Acute Assessment & Plan: 09/01/23 - Creat. 1.30 - R/t CHF, LASIX - trend labs 09/02: -D/C lisinopril, Avoid BECKI/ARBS, NSAIDS, continue to monitor renal/lytes daily Code(s): N17.9 - ACUTE KIDNEY FAILURE, UNSPECIFIED (5) Pneumonia Current Visit: Yes Status: Acute Assessment & Plan: - as seen on CT - Procal elevated - Rocephin and azithromycin 09/01 - WBC WNL 09/02: -RA -WBC WNL d/c rocephin Code(s): J18.9 - PNEUMONIA, UNSPECIFIED ORGANISM (6) Hyponatremia Current Visit: Yes Status: Acute Assessment & Plan: 09/01 - Mild 132- trend - possibly r/t increase water intake last night - advised to decrease water intake Code(s): E87.1 - HYPO-OSMOLALITY AND HYPONATREMIA (7) CHF (congestive heart failure) Current Visit: Yes Status: Acute Assessment & Plan: - BNP 2660- on admission - Lasix started in ER- continue - Coreg, ASA - Room air - Non-pitting edema 09/01 - +1 pitting edema BLLE - Increased SOb - May be related to increase water intake last night- advised to decrease intake. Code(s): I50.9 - HEART FAILURE, UNSPECIFIED (8) Hyperlipidemia LDL goal <70 Current Visit: Yes Status: Acute Assessment & Plan: 09/01 - start statin Code(s): E78.5 - HYPERLIPIDEMIA, UNSPECIFIED (9) Cardiomegaly Current Visit: Yes Status: Acute Assessment & Plan: - as seen on CT - echo for further eval- will have to wait until Saturday Code(s): I51.7 - CARDIOMEGALY (10) Obesity, morbid, BMI 40.0-49.9 Current Visit: Yes Status: Acute Assessment & Plan: - advised diet control Code(s): E66.01 - MORBID (SEVERE) OBESITY DUE TO EXCESS CALORIES (11) Rash Current Visit: Yes Status: Acute Assessment & Plan: - 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 Pulmonary embolus evaluation limited by respiration artifact. No central pulmonary was. 2. Cardiomegaly without diane CHF. 3. Posterior right lung base groundglass opacities with small effusion. Rule out pneumonia. 4. Chronic findings including fatty liver, degenerative spondylosis, and old granulomatous disease. - Rocephin gave in ER for possible pneumonia - One time dose of Lasix gave in ER - Procal pending - Continue antibiotics for pneumonia coverage until procal is back. 08/31 - Procal elevated- continue antibiotics - Continue Lasix 09/01 - Continued SOB Code(s): R06.02 - SHORTNESS OF BREATH (13) Sleep apnea Current Visit: Yes Status: Acute Assessment & Plan: - Continue CPAP at night. - May use home CPAP Code(s): G47.30 - SLEEP APNEA, UNSPECIFIED (14) Smoker Current Visit: Yes Status: Acute Assessment & Plan: - advised cessation - nicotine patch Code(s): F17.200 - NICOTINE DEPENDENCE, UNSPECIFIED, UNCOMPLICATED (15) Hypertension Current Visit: No Status: Acute Assessment & Plan: - stable - Continue Lisinopril without HCTZ - Started Coreg 09/01 - BP stable and improved 09/02: -d/c lisinopril due to NILAM, increased Coreg I spent 35 minutes [id number] with the patient on the day of discharge performing discharge exam, discussing hospital stay and discharge instructions with patient and caregivers, preparation of discharge records, prescriptions & referral forms and addressing any questions/concerns the patient had as documented above. - Vitals & Intake/Output Vital Signs: Vital Signs Temperature 97.9 F 09/03/23 06:58 Pulse Rate 71 09/03/23 06:58 Respiratory Rate 16 09/03/23 06:58 Blood Pressure 110/59 09/03/23 06:58 O2 Sat by Pulse Oximetry 97 09/03/23 06:58 Intake & Output: Intake & Output 08/31/23 09/01/23 09/02/23 09/03/23 11:59 11:59 11:59 11:59 Intake Total 1501 1240 960 720 Output Total 1825 1085 500 600 Balance -324 155 460 120 Weight 200.5 kg 202.2 kg 202.5 kg - Lab Result Diagrams: 09/03/23 06:30 09/03/23 06:30 Lab Results-Last 24 Hrs: Lab Results-Last 24 Hours 09/03/23 09/03/23 Range/Units 06:30 06:30 WBC 11.4 H (4.0-10.5) x10^3/uL RBC 4.24 (4.1-5.6) x10^6/uL Hgb 12.3 L (12.5-18.0) g/dL Hct 38.5 L (42-50) % MCV 90.8 (78-100) fL MCH 29.0 (26-32) pg MCHC 31.9 L (32-36) g/dL RDW 15.8 H (11.5-14.0) % Plt Count 229 (150-450) x10^3/uL MPV 10.4 (7.5-11.0) fL Sodium 132 L (137-145) mmol/L Potassium 3.5 (3.5-5.1) mmol/L Chloride 100 (98-107) mmol/L Carbon Dioxide 25 (22-30) mmol/L Anion Gap 10.9 (5-15) MEQ/L BUN 30 H (9-20) mg/dL Creatinine 1.30 H (0.66-1.25) mg/dL Estimated GFR > 60.0 ML/MIN Glucose 106 (74-106) mg/dL Calcium 7.7 L (8.4-10.2) mg/dL Total Bilirubin 0.70 (0.2-1.3) mg/dL AST 60 H (17-59) U/L ALT 64 H (0-50) U/L Alkaline Phosphatase 75 (38-126) U/L Serum Total Protein 6.4 (6.3-8.2) g/dL Albumin 3.6 (3.5-5.0) g/dL - Radiology Exams Ordered Rad Exams-Entire Visit: Radiology Procedures Category Date Time Status ECHO W/2D AND DOPPLER [US] Routine Exams 09/02/23 08:00 Draft - Procedures and Test Procedures and Tests throughout Hospitalization: Therapy Orders & Screens 08/30/23 16:49 BiPap/CPAP ROUTINE Comment: CPAP at night Diagnosis: sleep apnea 08/30/23 17:47 EKG REPEAT IN AM Comment: Diagnosis: A- fib RVR Respiratory Therapy Consult ONCE Comment: Reason For Exam: Diagnosis: A- fib RVR 08/30/23 18:10 Respiratory Therapy Assessment DAILY Comment: Diagnosis: A- fib RVR 08/30/23 18:18 RT Screen per Nursing Assess ONCE Comment: Protocol Order Physician Instructions: Greater than 3 points order RT Admission Screen Reason For Exam: Triggered on Admission Diagnosis: A- fib RVR Diagnosis: A- fib RVR Pneumonia: No Home O2: No Asthma: No CHF: Yes Home CPAP/BIPAP: Yes Home Nebs/MDI: Yes Total Points: 13 Smoking Cessation Education ONCE Comment: Diagnosis: A- fib RVR Smoking Status: Current every day smoker How long have you smoked: 35 years Do you dip or chew tobacco: No 09/01/23 07:00 Respiratory MDI BID Comment: PT OWN ADVAIR Diagnosis: A- fib RVR 09/01/23 11:40 EKG STAT Comment: Diagnosis: A- fib RVR EKG STAT Comment: Diagnosis: A- fib RVR Discharge Exam General Appearance: no apparent distress Neurologic Exam: alert, oriented x 3, cooperative Eye Exam: PERRL Ears, Nose, Throat Exam: normal ENT inspection Neck Exam: normal inspection Respiratory Exam: normal breath sounds, lungs clear Cardiovascular Exam: irregular (afib) Gastrointestinal/Abdomen Exam: soft, normal bowel sounds Male Genitalia Exam: deferred Rectal Exam: deferred Final Diagnosis/Problem List - Final Discharge Diagnosis/Problem (1) Atrial fibrillation with RVR Current Visit: Yes Status: Acute Code(s): I48.91 - UNSPECIFIED ATRIAL FIBRILLATION (2) Elevated troponin Current Visit: Yes Status: Acute Code(s): R79.89 - OTHER SPECIFIED ABNORMAL FINDINGS OF BLOOD CHEMISTRY (3) Hypokalemia Current Visit: Yes Status: Acute Code(s): E87.6 - HYPOKALEMIA (4) NILAM (acute kidney injury) Current Visit: Yes Status: Acute Code(s): N17.9 - ACUTE KIDNEY FAILURE, UNSPECIFIED (5) Pneumonia Current Visit: Yes Status: Acute Code(s): J18.9 - PNEUMONIA, UNSPECIFIED ORGANISM (6) Hyponatremia Current Visit: Yes Status: Acute Code(s): E87.1 - HYPO-OSMOLALITY AND HYPONATREMIA (7) CHF (congestive heart failure) Current Visit: Yes Status: Acute Code(s): I50.9 - HEART FAILURE, UNSPECIFIED (8) Hyperlipidemia LDL goal <70 Current Visit: Yes Status: Acute Code(s): E78.5 - HYPERLIPIDEMIA, UNSPECIFIED (9) Cardiomegaly Current Visit: Yes Status: Acute Code(s): I51.7 - CARDIOMEGALY (10) Obesity, morbid, BMI 40.0-49.9 Current Visit: Yes Status: Acute Code(s): E66.01 - MORBID (SEVERE) OBESITY DUE TO EXCESS CALORIES (11) Rash Current Visit: Yes Status: Acute Code(s): R21 - RASH AND OTHER NONSPECIFIC SKIN ERUPTION (12) Shortness of breath Current Visit: Yes Status: Acute Code(s): R06.02 - SHORTNESS OF BREATH (13) Sleep apnea Current Visit: Yes Status: Acute Code(s): G47.30 - SLEEP APNEA, UNSPECIFIED (14) Smoker Current Visit: Yes Status: Acute Code(s): F17.200 - NICOTINE DEPENDENCE, UNSPECIFIED, UNCOMPLICATED (15) Hypertension Current Visit: No Status: Acute Code(s): I10 - ESSENTIAL (PRIMARY) HYPERTENSION - Discharge Prescriptions: New Amiodarone HCl 200 mg [Cordarone 200 MG] 200 mg PO BID 30 Days #60 tablet Carvedilol [Coreg ] 6.25 mg PO BID 30 Days #60 tablet Apixaban [Eliquis] 5 mg PO BID 30 Days #60 tablet Potassium Chloride Tab* [Klor Con] 20 meq PO DAILY 30 Days #30 tablet Furosemide 20 mg [Lasix 20 mg] 20 mg PO DAILY 30 Days #30 tablet Simvastatin 20Mg [Zocor 20Mg] 20 mg PO HS 30 Days #30 tablet Continue Aspirin [Aspirin EC] 81 mg PO DAILY #30 tablet. Fluticasone/Salmeterol 500/50* [Advair 500-50 Diskus] 1 each IH BID Discontinued Lisinopril/Hydrochlorothiazide [Lisinopril-Hctz 20-25 mg Tab] 1 tab PO BID Instructions: Quitting Smoking for Older Adults, Atrial Fibrillation (DC), Amiodarone, Carvedilol, Enoxaparin, How to Give a Blood Thinner Shot , Going Home on Blood Thinners Additional Instructions: CONTACT [employer]ANCIAL [employer]IG[employer] [facility] FOR $ CONCERNS [phone] [phone] YOUR WALKER WILL BE DELIVERED BY [facility] NEXT WEEK (WHEN THEY HAVE A BARIATRIC ROLLATOR IN STOCK), THEIR PHONE NUMBER IS [phone] Follow up with: ADELSO KAPADIA [ACTIVE STAFF] - 09/10/23 10:00 am JATINDER WHEELER MD [CONSULTING PHYSICIAN] - 09/09/23 2:40 pm
[2023-09-03 11:47] VITALS: BP 144/77; PULSE 80; O2SAT 96
== END 2023-09-03 13:09 | disposition home or self-care (01) | DRG 308 ==
LOC: ED 12:18 → MED SURG 17:44 → ICU 17:44 → UNDOADMIN 17:44 → MED SURG 09-01 08:47
PROVIDERS: ADMIT Internal Medicine; ATTEND Internal Medicine
DX: I48.20 Chronic atrial fibrillation, unspecified (principal); J18.9 Pneumonia, unspecified organism; N17.9 Acute kidney failure, unspecified; E87.1 Hypo-osmolality and hyponatremia; R79.89 Other specified abnormal findings of blood chemistry; E87.6 Hypokalemia; I11.0 Hypertensive heart disease with heart failure; I50.9 Heart failure, unspecified; E78.5 Hyperlipidemia, unspecified; E66.01 Morbid (severe) obesity due to excess calories; R21 Rash and other nonspecific skin eruption; R06.02 Shortness of breath; G47.30 Sleep apnea, unspecified; F17.200 Nicotine dependence, unspecified, uncomplicated; R60.0 Localized edema; I25.10 Atherosclerotic heart disease of native coronary artery without angina pectoris; I25.2 Old myocardial infarction; Z79.899 Other long term (current) drug therapy; Z20.828 Contact with and (suspected) exposure to other viral communicable diseases
CPT/HCPCS: 0241U; 36000; 36415; 71260; 80051; 80053; 80061; 82947; 83721; 83735; 83880; 84145; 84443; 84484; 85025; 85027; 85379; 85610; 93005; 93041; 93306; 94640; 94760; 94762; 96365; 96367; 96372; 96374; 96375; 99285; 99291; J0456; J0696; J1200; J1650; J1940; J3480; Q3014; A9270-GY